=== PATIENT | female | born 1950 | race Caucasian/White ===

== ENCOUNTER 2017-06-26 21:18 | Emergency (ER) | payer MEDICARE, SELFPAY ==
[2017-06-26 21:20] VITALS: BP 152/83; PULSE 90; RESP 16; TEMP 36.6; O2SAT 97; BMI 30.7
--- NOTE | 2017-06-26 22:06 | HMH.EDNVD ---
ED Disposition Clinical Impression: Abdominal pain Qualifiers: Abdominal location: right lower quadrant Qualified Code(s): R10.31 - Right lower quadrant pain Disposition: Home, Self-Care Condition on Discharge: Good Instructions: DI for Acute Abdomen Additional Instructions: resume orders Referrals: Rony Martínez MD [Primary Care Provider] - - Critical Care Critical Care Time: No Attestation: On 06/26/17, the high probability of a clinically significant, sudden or life threatening deterioration of the following system(s) required my full and direct attention, intervention and personal management. The time I documented below is in addition to time spent performing reported procedures but includes the following listed in this critical care notation. Medical Decision Making - Medical Records Medical records reviewed: Yes: I reviewed the patient's medical records. Vital Signs: 06/26/17 21:20 06/26/17 22:48 Temperature 97.8 F Temperature Source Oral Pulse Rate [Right Radial] 90 63 Respiratory Rate 16 18 Blood Pressure [Right Arm] 152/83 149/71 Blood Pressure Mean [Right Arm] 106 97 Blood Pressure Source [Right Arm] Automatic Cuff Automatic Cuff Blood Pressure Position [Right Arm] Sitting Sitting 02 Sat by Pulse Oximetry 97 97 Oxygen Delivery Method Room Air Room Air - Lab Data Lab results reviewed: Yes: I reviewed the patient's lab results. Lab Results 06/26/17 22:25: Urine Color Yellow, Urine Appearance Clear, Urine pH 6.0, Ur Specific [place] 1.010, Urine Protein Negative, Urine Glucose (UA) Negative, Urine Ketones Negative, Urine Blood Trace-i, Urine Nitrate Negative, Urine Bilirubin Negative, Urine Urobilinogen 0.2, Ur Leukocyte Esterase Trace, Urine RBC None, Urine WBC Occasional, Ur Squamous Epith Cells 3-5, Urine Bacteria Trace 06/26/17 22:41: WBC 10.5, RBC 4.92, Hgb 13.3, Hct 41.2, MCV 83.7, MCH 27.1, MCHC 32.4, RDW 14.2, Plt Count 249, MPV 7.7, Neut % (Auto) 76.4, Lymph % (Auto) 16.6, [place] % (Auto) 5.1, Eos % (Auto) 1.2, Baso % (Auto) 0.6, Neut # (Auto) 8.0 H, Lymph # (Auto) 1.7, [place] # (Auto) 0.5, Eos # (Auto) 0.1, Baso # (Auto) 0.1 06/26/17 22:41: Sodium 137, Potassium 4.1, Chloride 102, Carbon Dioxide 27, Anion Gap 12.1, BUN 6 L, Creatinine 0.81, Estimated Creat Clear 79, Estimated GFR 71, Est GFR ( Amer) 86, Glucose 123 H, Calcium 9.5, Total Bilirubin 0.3, AST 23, ALT 46, Alkaline Phosphatase 130 H, Total Protein 7.4, Albumin 3.9, Globulin 3.5 H, Albumin/Globulin Ratio 1.1, Amylase 107 06/26/17 22:41: Lipase 139 Result diagrams: 06/26/17 22:41 06/26/17 22:41 Orders (Tests/Meds): ORDERS Category Date Time Status CT abdomen pelvis wo con Stat Cat Scan 06/26/17 22:08 Taken [place] (Eskalith(R)) Stat Lab 06/26/17 22:41 Received - CT Data CT Scan: Abdomen, Pelvis Time Received: 23:[address] Reviewed: Yes: I have viewed the radiologist's interpretation Preliminary Findings: Normal/NAD - Tirso Inquiry Pt receiving controlled substance: No Nausea/Vomiting/Diarrhea HPI - General Chief complaint: Abdominal Pain Stated complaint: abdominal pain Time Seen by Provider: 06/26/17 21:35 Mode of Arrival: EMS Source of Information: Patient, EMS, Medical Record Limitations: No Limitations Description of Symptoms (Recalled from ER Triage Doc. by RN): pt reports pain in stomach, back, right leg, for months, states she isn't happy living at [facility] - History of Present Illness HPI Narrative: pt with lower abd pain tonight with no fever or vomiting MD complaint: abdominal pain Onset (ago): day(s) Associated Abdominal Pain: Yes Location of pain: RLQ Severity: moderate Relieving factors: none Exacerbating factors: none - Related Data Home Medications Medication Instructions Recorded Confirmed Benztropine Mesylate 0.5 mg PO BID 06/26/17 06/26/17 Brimonidine Tartrate/Timolol 15 ml OP DAILY 06/26/17 06/26/17 [Combigan 0.2%-0.5% Eye Drops] Buspirone HC
--- NOTE | 2017-06-26 22:08 | CT_ITS ---
CT abdomen pelvis wo con CLINICAL INDICATION: Localized lower abdominal pain ITS.REASON: abd pain ORDERING PHYSICIAN: Rony Martínez MD PATIENT AGE: 66 years COMPARISON: None TECHNIQUE: Axial images obtained with sagittal and coronal reformats. PROCEDURE: Oral Contrast: None IV Contrast: None . FINDINGS: There are trace bilateral pleural effusions with mild adjacent atelectasis. There is diffuse fatty liver. Borderline hepatomegaly. No calcified gallstones. Borderline splenomegaly at 14 cm. The adrenal glands are unremarkable. No obvious pancreatic mass. No renal calculi or hydronephrosis. Small umbilical hernia containing fat. No evidence of appendicitis, intestinal obstruction, or diverticulitis. No free air evident. The uterus is enlarged with heterogeneous density with scattered areas of calcification which may represent fibroid involvement. Degenerative change lumbar spine. Mild lumbar scoliosis convex right. IMPRESSION: 1. Trace bilateral pleural effusions. 2. Fatty liver infiltration with borderline hepatosplenomegaly 3. Enlarged uterus with calcification which may be due to fibroids. 4. No acute abdominal or pelvic findings.
--- NOTE | 2017-06-26 22:09 | ED_ITS ---
ED Disposition Clinical Impression: Abdominal pain Qualifiers: Abdominal location: right lower quadrant Qualified Code(s): R10.31 - Right lower quadrant pain Disposition: Home, Self-Care Condition on Discharge: Good Instructions: DI for Acute Abdomen Additional Instructions: resume orders Referrals: Rony Martínez MD [Primary Care Provider] - - Critical Care Critical Care Time: No Attestation: On 06/26/17, the high probability of a clinically significant, sudden or life threatening deterioration of the following system(s) required my full and direct attention, intervention and personal management. The time I documented below is in addition to time spent performing reported procedures but includes the following listed in this critical care notation. Medical Decision Making - Medical Records Medical records reviewed: Yes: I reviewed the patient's medical records. Vital Signs: 06/26/17 21:20 06/26/17 22:48 Temperature 97.8 F Temperature Source Oral Pulse Rate [Right Radial] 90 63 Respiratory Rate 16 18 Blood Pressure [Right Arm] 152/83 149/71 Blood Pressure Mean [Right Arm] 106 97 Blood Pressure Source [Right Arm] Automatic Cuff Automatic Cuff Blood Pressure Position [Right Arm] Sitting Sitting 02 Sat by Pulse Oximetry 97 97 Oxygen Delivery Method Room Air Room Air - Lab Data Lab results reviewed: Yes: I reviewed the patient's lab results. Lab Results 06/26/17 22:25: Urine Color Yellow, Urine Appearance Clear, Urine pH 6.0, Ur Specific [place] 1.010, Urine Protein Negative, Urine Glucose (UA) Negative, Urine Ketones Negative, Urine Blood Trace-i, Urine Nitrate Negative, Urine Bilirubin Negative, Urine Urobilinogen 0.2, Ur Leukocyte Esterase Trace, Urine RBC None, Urine WBC Occasional, Ur Squamous Epith Cells 3-5, Urine Bacteria Trace 06/26/17 22:41: WBC 10.5, RBC 4.92, Hgb 13.3, Hct 41.2, MCV 83.7, MCH 27.1, MCHC 32.4, RDW 14.2, Plt Count 249, MPV 7.7, Neut % (Auto) 76.4, Lymph % (Auto) 16.6, [place] % (Auto) 5.1, Eos % (Auto) 1.2, Baso % (Auto) 0.6, Neut # (Auto) 8.0 H, Lymph # (Auto) 1.7, [place] # (Auto) 0.5, Eos # (Auto) 0.1, Baso # (Auto) 0.1 06/26/17 22:41: Sodium 137, Potassium 4.1, Chloride 102, Carbon Dioxide 27, Anion Gap 12.1, BUN 6 L, Creatinine 0.81, Estimated Creat Clear 79, Estimated GFR 71, Est GFR ( Amer) 86, Glucose 123 H, Calcium 9.5, Total Bilirubin 0.3, AST 23, ALT 46, Alkaline Phosphatase 130 H, Total Protein 7.4, Albumin 3.9 , Globulin 3.5 H, Albumin/Globulin Ratio 1.1, Amylase 107 06/26/17 22:41: Lipase 139 Result diagrams: 06/26/17 22:41 06/26/17 22:41 Orders (Tests/Meds): ORDERS Category Date Time Status CT abdomen pelvis wo con Stat Cat Scan 06/26/17 22:08 Taken [place] (Eskalith(R)) Stat Lab 06/26/17 22:41 Received - CT Data CT Scan: Abdomen, Pelvis Time Received: 23:[address] Reviewed: Yes: I have viewed the radiologist's interpretation Preliminary Findings: Normal/NAD - [place] Inquiry Pt receiving controlled substance: No Nausea/Vomiting/Diarrhea HPI - General Chief complaint: Abdominal Pain Stated complaint: abdominal pain Time Seen by Provider: 06/26/17 21:35 Mode of Arrival: EMS Source of Information: Patient, EMS, Medical Record Limitations: No Limitations Description of Symptoms (Recalled from ER Triage Doc. by RN): pt reports pain in stomach, back, right leg, for months, states she isn't happy living at [facility]
[2017-06-26 22:32] LABS: Microscopic, Urine URINE MICROSCOPIC (MICROSCOPIC)
[2017-06-26 22:38] LABS: Appearance,Urine CLEAR (Clear); Bilirubin,Urine Negative (Negative); Blood, Urine TRACE-I (Negative); Color,Urine YELLOW (Yellow); Glucose,Urine (UA) Negative (Negative); Ketones,Urine Negative (Negative); Leukocyte Esterase,Urine TRACE (Negative); Nitrate,Urine Negative (Negative); Protein,Urine Negative (Negative); Urobilinogen,Urine 0.2 EU/dl (0.2)
[2017-06-26 22:48] VITALS: BP 149/71; PULSE 63; RESP 18; O2SAT 97
[2017-06-26 23:00] LABS: WBC,Urine Occasional #/hpf (0-3)
[2017-06-26 23:01] LABS: Bacteria,Urine Trace /lpf
[2017-06-26 23:01] LABS: Lipase 139 u/L (73-393)
[2017-06-26 23:08] LABS: Alanine Aminotransferase 46 U/L (12-78); Albumin Level 3.9 gm/dL (3.4-5.0); Albumin/Globulin Ratio 1.1 (1.1-1.8); Alkaline Phosphatase 130 U/L (46-116); Amylase 107 U/L (25-125); Anion Gap 12.1 mEq/L (5-15); Aspartate Amino Transferase 23 U/L (15-37); Bilirubin,Total 0.3 mg/dL (0.2-1.0); Blood Urea Nitrogen 6 mg/dL (7-18); Calcium 9.5 mg/dL (8.5-10.1); Carbon Dioxide 27 mmol/L (21.0-32.0); Chloride 102 mmol/L (98-107); Creatinine Clearance Estimated 79 mL/min (0-300); Creatinine,Serum 0.81 mg/dL (0.55-1.02); Estimated Glomerular Filt Rate 71 ml/min (>60); GFR (African American) 86 ML/MIN (>60); Globulin 3.5 gm/dl (1.3-3.2); Glucose 123 mg/dL (74-106); Potassium 4.1 mmoL/L (3.5-5.1); Sodium 137 mmol/L (136-145); Total Protein,Serum 7.4 gm/dL (6.4-8.2)
[2017-06-26 23:14] LABS: Basophils # 0.1 K/mm3 (0-0.2); Basophils % 0.6 % (0.1-2.0); Eosinophils # 0.1 K/mm3 (0.0-0.4); Eosinophils % 1.2 % (0.1-12.0); Hematocrit 41.2 % (37.0-47.0); Hemoglobin 13.3 g/dL (12.2-16.2); Lymphocytes # 1.7 K/mm3 (0.7-4.5); Lymphocytes % 16.6 K/mm3 (10-50); Mean Corpuscular HGB Conc 32.4 g/dL (31.8-35.4); Mean Corpuscular Hemoglobin 27.1 pg (27.0-31.2); Mean Corpuscular Volume 83.7 fl (81-99); Mean Platelet Volume 7.7 fl (7.4-10.4); Monocytes # 0.5 K/mm3 (0.1-1.0); Monocytes % 5.1 % (1.7-9.3); Neutrophils % 76.4 % (37.0-80.0); Platelet Count 249 K/mm3 (142-424); Red Blood Count 4.92 M/mm3 (4.20-5.40); Red Cell Distribution Width 14.2 % (11.5-17.5); White Blood Count 10.5 K/mm3 (4.8-10.8)
[2017-06-26 23:50] VITALS: BP 136/70; PULSE 82; RESP 16; TEMP 36.9; O2SAT 98
== END 2017-06-26 23:50 | disposition home or self-care (01) ==
PROVIDERS: Emergency Provider Emergency Medicine; PCP Emergency Medicine
DX: R10.31 Right lower quadrant pain (principal)
CPT/HCPCS: 74176; 80053; 80178; 81001; 82150; 83690; 85025; 99283

== ENCOUNTER → 2017-10-04 13:20 | Outpatient (POV) | payer MEDICARE, SELFPAY | PROVIDERS: PCP Emergency Medicine; Visit Provider Dermatology | DX: Z00.00 Encounter for general adult medical examination without abnormal findings (principal) ==

== ENCOUNTER → 2017-10-10 09:32 | Outpatient (CLI) | payer MEDICARE, SELFPAY ==
--- NOTE | 2017-10-10 09:33 | MM_ITS ---
MM Dig screening mamm BI w/CAD ORDERING PHYSICIAN : Rony Martínez MD PATIENT AGE: 66 years GENDER: Female INDICATION:. No hormones no new complaints noncontributory family history Previous stereotactic biopsy left breast COMPARISON: No previous mammograms available. Note We faxed request to obtain prior mammograms from 2007 2006 [facility]... But they no longer have images on this patient TECHNIQUE: Standard CC and MLO images were obtained. Axillary cc view both breast included R2 CAD reviewed. FINDINGS: Moderate fatty replacement with mild to moderate residual bladder elements in both breasts. RIGHT BREAST:On today's CC and axillary cc view vague round densities are seen at the deep right breast. Area labeled A deep central right breast measuring 7 mm. Is fairly low-density for size and could be a intramammary node or low density cyst Area labeled B: Low-density Nodule upper-outer quadrant measuring 7.5 mm with similar considerations.. Ultrasound suggested for these areas Series of linear calcification at the superior central breast 12 o'clock position. These may merely be secretory calcifications but would benefit from magnification CC/& 90 spot views when patient returns. These will establish baseline character since prior films not available. LEFT BREAST: no prominent findings. . minimal asymmetric low-density area at inferior left breast MLO view Labeled X. . Likely dissipates on cc view but would suggest a spot MLO & 90 degree & cc view lateral breast when the patient returns. . There is also a vague area at medial left breast was dissipates on subsequent axillary and nipple profile views of left breast \ . There is a metallic marker at the deep central left breast from previous stereotactic biopsy. ....IMPRESSION: ...... 1. No previous studies for comparison .Prior outside studies, no longer available 2. RIGHT BREAST: Two subtle areas low-density nodularity deep right breast-unlikely significant (Labeled A & B) , but would benefit from ultrasound right breast . Developing linear calcifications right breast would benefit from magnification views when patient returns as well. These magnification spot views may be able to included the above-mentioned nodules as well 3. LEFT BREAST Minimal focal low-density area inferior left breast would benefit from MLO & 90 degrees spot view when the patient returns as well. Labeled X BI-RADS Category: 0 Need Additional Imaging Evaluaiton . RECOMMENDED FOLLOW-UP: IMM - FOLLOW-UP RECOMMENDED Right breast. Low Magnification Spot views to include calcifications and nodular densities Also ultrasound right breast Left breast: Small low-density area nodularity at the inferior left breast (A letter has been sent to the patient regarding results of the study.) The
== END ==
PROVIDERS: PCP Emergency Medicine; Visit Provider Emergency Medicine
DX: Z12.31 Encounter for screening mammogram for malignant neoplasm of breast (principal)
CPT/HCPCS: 77067

== ENCOUNTER → 2017-10-31 14:10 | Outpatient (CLI) | payer MEDICARE, SELFPAY ==
--- NOTE | 2017-10-31 14:13 | US_ITS ---
MM Dig mamm DX unilat RT CAD, US breast RT complete Ordering Physician: Rony Martínez MD Patient Age: 66 years: Female HISTORY: ITS.REASON: abnormal right br mammogram Problem solving additional images both breast as well as right breast ultrasound COMPARISON :October 2017 screening mammogram ========= DIAGNOSTIC BILATERAL MAMMOGRAM. W/ SPOT VIEWS:: TECHNIQUE Multiple spot views Regular and Magnification spot views on right right breast Standard Spot views left breast.. FINDINGS Right breast. Areas of vague nodularity in the right breast dissipate from one view to another with no discrete persistent area of concern. Ultrasound reveals no significant cyst or solid nodule. Recommend 6 month follow-up mammogram and ultrasound to evaluate vague scattered areas of nodularity on right *. Small small linear area calcification at the central right breast 12:00 most likely early vascular or secretory calcification but would benefit from follow-up as well Left breast. Additional views decreased concern regarding significant findings at left breast by mammography. Follow-up in one year adequate on left Right breast ultrasound. No cyst. No significant suspicious findings. Only note vague slightly hypoechoic areas of what I suspect are merely areas of vague hypoechoic glandular tissue seen towards upper-outer quadrantRight breast. These would seem to correlate with the minimal nodularity towards upper-outer quadrant seen on mammography... Would suggest 6 month follow-up IMPRESSION: 1. RIGHT BREAST: Recommend follow-up studies within 6 months Additional mammogram views decreased concern regarding a significant nodules. Ultrasound right breast with no definitive findings only some areas of vague slightly hypoechoic tissue upper-outer quadrant..-But Suggest5- 6 month follow-up Small area linear calcifications most likely early benign vascular or secretory calcification, but would benefit from 5- 6 month follow-up as well 2. Left breast : Spot views reveal no areas of concern. Follow-up left mammogram 1 year BI-RADS Category: 3 Benign Finding Short Term Follow-up RECOMMENDED FOLLOW-UP: 6M - 6 MONTH FOLLOW-UP (Right mammogram & ultrasound 5-6 months suggested) (A letter has been sent to the patient regarding results of the study.)
== END ==
PROVIDERS: PCP Emergency Medicine; Visit Provider Emergency Medicine
DX: R92.8 Other abnormal and inconclusive findings on diagnostic imaging of breast (principal)
CPT/HCPCS: 76641; 77065

== ENCOUNTER → 2018-05-01 13:18 | Outpatient (CLI) | payer MEDICARE, SELFPAY ==
--- NOTE | 2018-05-01 13:24 | MM_ITS ---
MM Dig mamm DX unilat RT CAD, US breast RT complete INDICATION: Follow-up abnormal mammogram, probably benign findings ORDERING PHYSICIAN: Lincoln Grimaldo MD PATIENT AGE: 67 years COMPARISON: 10/31/2017 TECHNIQUE: Standard images along spot compression views and right breast ultrasound with axilla FINDINGS: Right breast mammogram: Average fibroglandular tissue. Stable benign-appearing calcifications. Scattered areas of asymmetric density are once again noted and are overall not significantly changed. No malignant appearing mass or malignant appearing microcalcifications evident. Minimal asymmetric density is noted in the medial aspect of the right breast on the cc view. This is not reproducible on the rolled views or the ML view and is felt to be due to fibroglandular elements. Right breast ultrasound: 3 mm parallel hypoechoic area at 8:00. Hypoechoic area at 10:00 does appear to elongate. No malignant appearing mass evident. IMPRESSION: Benign findings, scattered areas of asymmetry felt to represent fibroglandular elements. No change in the benign-appearing calcification. Recommend follow-up screening mammogram in October 2018 and the patient back on schedule BI-RADS Category: 2 Benign Finding(s) RECOMMENDED FOLLOW-UP: 6M - 6 MONTH FOLLOW-UP (A letter has been sent to the patient regarding results of the study.)
== END ==
PROVIDERS: PCP Emergency Medicine; Visit Provider Nurse Practitioner Obstetrics & Gynecology
DX: R92.8 Other abnormal and inconclusive findings on diagnostic imaging of breast (principal)
CPT/HCPCS: 77065

== ENCOUNTER → 2018-05-06 13:48 | Outpatient (CLI) | payer MEDICARE, SELFPAY | LOC: RAD 13:48 | PROVIDERS: PCP Emergency Medicine; Visit Provider Emergency Medicine | DX: R92.8 Other abnormal and inconclusive findings on diagnostic imaging of breast (principal) | CPT/HCPCS: 76641 ==

== ENCOUNTER 2018-12-14 13:30 | Inpatient (IN) ==
[2018-12-14 14:02] LABS: Basophils % 0.3 % (0.1-2.0); Eosinophils # 0.2 K/mm3 (0.0-0.4); Eosinophils % 3.3 % (0.1-12.0); Hematocrit 38.4 % (37.0-47.0); Hemoglobin 11.9 g/dL (12.2-16.2); Lymphocytes # 0.9 K/mm3 (0.7-4.5); Mean Corpuscular Volume 88.5 fl (81-99); Mean Platelet Volume 7.2 fl (7.4-10.4); Monocytes # 0.4 K/mm3 (0.1-1.0); Monocytes % 5.7 % (1.7-9.3); Neutrophils # 4.9 K/mm3 (1.8-7.8); Neutrophils % 76.7 % (37.0-80.0); Platelet Count 331 K/mm3 (142-424); Red Blood Count 4.34 M/mm3 (4.20-5.40); Red Cell Distribution Width 13.8 % (11.5-17.5); White Blood Count 6.4 K/mm3 (4.8-10.8)
--- NOTE | 2018-12-14 14:09 | Emergency Department Note ---
ED Disposition Clinical Impression: [place] toxicity, QT prolongation, Altered mental status, Oral thrush, Hypothyroidism, Dehydration, Medication side effect Disposition: Still a Patient Condition on Discharge: Fair Instructions: DI for Altered Mental Status Referrals: Rony Martínez MD [Primary Care Provider] - - Critical Care Critical Care Time: No Attestation: On 12/14/18, the high probability of a clinically significant, sudden or life threatening deterioration of the following system(s) required my full and direct attention, intervention and personal management. The time I documented below is in addition to time spent performing reported procedures but includes the following listed in this critical care notation. Medical Decision Making - [place] Inquiry Pt receiving controlled substance: No [place] was queried for this patient: No Vital Signs: 12/14/18 13:31 12/14/18 14:03 12/14/18 15:30 Temperature 98 F Temperature Source Oral Pulse Rate [Right Brachial] 73 61 69 Respiratory Rate 16 Blood Pressure [Right Arm] 138/78 111/50 L 140/80 Blood Pressure Mean [Right Arm] 98 70 100 Blood Pressure Source [Right Arm] Automatic Cuff Blood Pressure Position [Right Arm] Sitting 02 Sat by Pulse Oximetry 98 96 95 Oxygen Delivery Method Room Air 12/14/18 16:24 Temperature Temperature Source Pulse Rate [Right Brachial] 55 L Respiratory Rate Blood Pressure [Right Arm] 128/60 Blood Pressure Mean [Right Arm] 82 Blood Pressure Source [Right Arm] Blood Pressure Position [Right Arm] 02 Sat by Pulse Oximetry 97 Oxygen Delivery Method - Lab Data Lab Results 12/14/18 13:45: WBC 6.4, RBC 4.34, Hgb 11.9 L, Hct 38.4, MCV 88.5, MCH 27.4, MCHC 31.0 L, RDW 13.8, Plt Count 331, MPV 7.2 L, Neut % (Auto) 76.7, Lymph % (Auto) 14.0, [place] % (Auto) 5.7, Eos % (Auto) 3.3, Baso % (Auto) 0.3, Neut # (Auto) 4.9, Lymph # (Auto) 0.9, [place] # (Auto) 0.4, Eos # (Auto) 0.2, Baso # (Auto) 0.0 12/14/18 13:45: Sodium 139, Potassium 3.4 L, Chloride 101, Carbon Dioxide 30, Anion Gap 11.4, BUN 8, Creatinine 0.85, Estimated Creat Clear 63, Estimated GFR 67, Est GFR ( Amer) 81, Glucose 96, Calcium 9.5, Total Bilirubin 0.3, AST 22, ALT 29, Alkaline Phosphatase 152 H, Total Protein 6.8, Albumin 3.2 L, Globulin 3.6 H, Albumin/Globulin Ratio 0.9 L 12/14/18 13:47: Magnesium 2.3 H, TSH 14.68 H, Free T4 0.75 L, Salicylates 1.4 L, Acetaminophen 0 L, Total Valproic Acid 92.8, Plasma/Serum Alcohol 0 12/14/18 14:03: Specimen Source Right brachial, O2 % room air, ABG pH 7.45, ABG pCO2 40.2, ABG pO2 74.8 L, ABG HCO3 27.4 H, ABG Total CO2 28.7 H, ABG O2 Saturation 94, ABG Base Excess 3.5 H, Jose Test Non applicable 12/14/18 15:10: Lactate 0.8 12/14/18 15:15: Urine Color Yellow, Urine Appearance Clear, Urine pH 7.0, Ur Specific [place] 1.015, Urine Protein Negative, Urine Glucose (UA) Negative, Urine Ketones Negative, Urine Blood Negative, Urine Nitrate Negative, Urine Bilirubin 1+ A, Urine Urobilinogen 1.0, Ur Leukocyte Esterase Negative, Urine WBC Occasional, Ur Squamous Epith Cells 3-5, Urine Bacteria Trace 12/14/18 15:15: Urine Opiates Screen Negative, Urine Methadone Screen Negative, Ur Barbituates Screen Negative, Ur Phencyclidine Scrn Negative, Ur Amphetamines Screen Negative, U Benzodiazepines Scrn Negative, Urine Cocaine Screen Negative, U Marijuana (THC) Screen Negative Result diagrams: 12/14/18 13:45 12/14/18 13:45 Orders (Tests/Meds): ED MEDICATIONS Discontinued Medications Generic Name Dose Route Start Last Admin Trade Name Freq PRN Reason Stop Dose Admin Sodium Chloride 500 mls @ 999 mls/hr 12/14/18 14:45 12/14/18 14:48 Sod Chlor 0.9% 1000ml Bag IV 12/14/18 15:15 999 mls/hr .Q31M GUNNAR Administration ORDERS Category Date Time Status [place] (Eskalith(R)) Stat Lab 12/14/18 15:10 Received - Radiology Data #1 Image(s): Chest Image Reviewed: Yes I reviewed the patient's radiology image Preliminary Findings: Normal/NAD IMPRESSION: Stable chest. Nothing definitely acute. No significant change since 12/02/2018 - CT Data CT Scan: Head Time Received: 15:[address] Reviewed: Yes: I have viewed the radiologist's interpretation Preliminary Findings: Normal/NAD Findings Narrative: IMPRESSION: No acute intracranial findings No significant change since December 02, 2018 CT head - ECG Data Tracing #1 Normal sinus rhythm 60/min, QTC prolongation at 564msec nonspecific ST and T wave changes in the lateral leads. ECG initial impression date: 12/14/18 ECG initial impression time: 14:00 Medical Decision Narrative: I spoke with the caregiver who told me that the patient has been progressively getting worse over the last months but this morning she was unable to wake up eat her breakfast or take her medications. 1600 patient had no acute finding and CT scan her EKG revealed prolonged QT C and her Depakote level was 94. 1630 I called and discussed with Dr. Medina was covering Dr. Martínez and he agreed to admit the patient for IV fluid rehydration he telemetry monitoring and repeat EKG in the morning, hold her lithium and Depakote. Altered Mental Status HPI - General Chief Complaint: Altered Mental Status Stated Complaint: ams Time Seen by Provider: 12/14/18 13:50 Mode of Arrival: EMS Source of Information: Patient, EMS, Medical Record - History of Present Illness HPI narrative: 67 years old white female who work who lives in an independent living [facility] on multiple psychiatric medications including Depakote risperidone and lithium. 2 days ago the shelter was notified of the lithium toxicity and a dose reduced to twice a day instead of 3 times a day. The patient continues to be somnolent and was brought to the ED for evaluation. The patient has no complain arousable to stimulation alert disoriented to place person and date. She moves 4 extremities. 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 and other antipsychotics.) - Related Data Home Medications Medication Instructions Recorded Confirmed Benztropine Mesylate 0.5 mg PO BID 06/26/17 12/14/18 Brimonidine Tartrate/Timolol 15 ml OP DAILY 06/26/17 12/14/18 [[place] 0.2%-0.5% Eye Drops] [place] Carbonate [[place] 300 mg PO BID 06/26/17 12/14/18 Carbonate ER] Loratadine [Allergy] 10 mg PO DAILY 06/26/17 12/14/18 Multivitamin [One Daily] 1 each PO DAILY 06/26/17 12/14/18 Sertraline HCl [Zoloft] 150 mg PO DAILY 06/26/17 12/14/18 risperiDONE [Risperidone] 4 mg PO BID 06/26/17 12/14/18 buspirone 15 mg tablet 20 mg PO TID tab 11/01/18 12/14/18 diphenhydramine 25 mg capsule 25 mg PO DAILY PRN cap 11/01/18 12/14/18 divalproex 125 mg capsule,delayed 500 mg PO TID cap 11/01/18 12/14/18 release sprinkle levothyroxine 100 mcg tablet 100 mcg PO DAILY 11/01/18 12/14/18 loperamide 2 mg capsule 2 mg PO Q4H 11/01/18 12/14/18 meloxicam 7.5 mg tablet 7.5 mg PO DAILY 11/01/18 12/14/18 polyethylene glycol 3350 17 17 g PO DAILY 11/01/18 12/14/18 gram/dose oral powder Allergies Allergy/AdvReac Type Severity Reaction Status Date / Time fluphenazine [From Prolixin] Allergy Verified 03/27/18 15:51 lorazepam [From Ativan] Allergy Verified 03/27/18 15:51 Penicillins Allergy Verified 03/27/18 15:51 trifluoperazine Allergy Verified 03/27/18 15:51 [From Stelazine] [facility] History - Hepatitis A Screen Attestation statement:: This patient has been screened for Hepatitis A risk factors. 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 ) - ENT ENT exam: Present: normal exam, normal oropharynx, TM's normal bilaterally, normal external ear exam, other (Tongue is dry coated with oral thrush. ) - Neck Neck exam: Present: normal inspection, full ROM, trachea midline. Absent: tenderness, meningismus, lymphadenopathy - Chest Chest inspection: Present: normal inspection, symmetric chest wall rise. Absent: tenderness - Respiratory Respiratory exam: Present: normal lung sounds bilaterally. Absent: respiratory distress - Cardiovascular Cardiovascular exam: Present: regular rate, normal rhythm. Absent: JVD - Abdominal Exam Abdominal exam: Present: soft, normal bowel sounds. Absent: distention, tendern ess, guarding, rebound, rigidity - External exam: Present: normal external exam - Extremities Exam Extremities exam: Present: normal inspection, full ROM, normal capillary refill. Absent: calf tenderness - Back Exam Back exam: Present: normal inspection. Absent: tenderness, CVA tenderness (R), CVA tenderness (L) - Neurological Exam Neurological exam: Present: alert, motor sensory deficit, reflexes normal, other (No cranial nerve deficit except for left eye blindness. The gait was not tested.) - Psychiatric Psychiatric exam: Present: normal affect, normal mood - Skin Skin exam: Present: warm, dry, intact, normal color - Lymphatic Lymphatic Findings: no adenopathy
[2018-12-14 14:17] LABS: Albumin Level 3.2 gm/dL (3.4-5.0); Albumin/Globulin Ratio 0.9 (1.1-1.8); Anion Gap 11.4 mEq/L (5-15); Bilirubin,Total 0.3 mg/dL (0.2-1.0); Calcium 9.5 mg/dL (8.5-10.1); Globulin 3.6 gm/dl (1.3-3.2); Total Protein,Serum 6.8 gm/dL (6.4-8.2)
[2018-12-14 14:41] LABS: Free T4 (Free Thyroxine) 0.75 ng/dl (0.76-1.46); Salicylate 1.4 mg/dL (2.8-20.0); Thyroid Stimulating Hormone 14.68 uIU/ml (0.358-3.740)
[2018-12-14 15:11] LABS: ABG Base Excess 3.5 mmol/L (-2.4-2.3); ABG HCO3 27.4 mmhg (22.0-26.0); ABG Oxygen Saturation 94 % (90-100); ABG PCO2 40.2 mmhg (35.0-45.0); ABG PH 7.45 mmol/L (7.35-7.45); ABG PO2 74.8 mmhg (80-100); ABG TCO2 28.7 mmhg (23-27)
[2018-12-14 15:12] LABS: Allen's Test Non Applicable; Oxygen room air %
[2018-12-14 15:24] LABS: Microscopic, Urine URINE MICROSCOPIC (MICROSCOPIC)
[2018-12-14 15:40] LABS: Appearance,Urine CLEAR (Clear); Blood, Urine Negative (Negative); Color,Urine YELLOW (Yellow); Glucose,Urine (UA) Negative (Negative); Ketones,Urine Negative (Negative); Leukocyte Esterase,Urine Negative (Negative); Protein,Urine Negative (Negative); Specific Gravity, Urine 1.015 (1.005-1.030)
[2018-12-14 15:54] LABS: Amphetamine/Metha Screen,Urine Negative ng/mL (<1000); Barbiturates Screen,Urine Negative ng/mL (<200); Benzodiazepines Screen,Urine Negative ng/mL (<200); Cannabinoid Screen,Urine Negative ng/mL (<50); Cocaine Screen,Urine Negative ng/mL (<300); Methadone Screen,Urine Negative ng/mL (<300); Opiate Screen,Urine Negative ng/mL (<300); Phencyclidine Screen,Urine Negative ng/mL (<25)
[2018-12-14 15:59] LABS: Bilirubin,Urine 1+ (Negative)
[2018-12-14 16:01] LABS: Bacteria,Urine Trace /lpf; WBC,Urine Occasional #/hpf (0-3)
--- NOTE | 2018-12-14 20:00 | History & Physical Report ---
*Admission Date: 12/14/18 *Chief complaint: Altered mental status *History of present illness: 67-year-old with significant psychiatric disease who has been a long-term resident of a local [facility] and who is on multiple cardiac medications and psychiatric medications including lithium. History from [facility] notes that 3 days ago they received notification that her lithium level was "toxic." The order was given to reduce lithium dose from 3 times daily to twice daily, but patient has continued to become more somnolent and this morning was noted to be sleeping in her chair, unable to feed or do activities of daily living and was brought to the emergency department. Noted to be somnolent, but arousable, vital signs and labs were unremarkable- lithium level is pending-but was noted to have long QT interval on EKG and was admitted to the hospital for further evaluation and monitoring. [facility] History I have reviewed the patient's past medical history: Yes Medical History: Denies:: Cancer, Diabetes Mellitus Type 1, Diabetes Mellitus Type 2, MRSA *Have you ever received a pneumonia vaccine?: Yes *Have you received a flu vaccine this season?: Yes Other Medical History: Reports: Cataracts, Glaucoma, Hypothyroidism, Thyroid Disease Comment:: Schizophrenia with schizoaffective disorder Amputation: No Fractures: No - *Social History Smoking Status: Former smoker Alcohol Intake: never *Occupational Status:: disabled Housing: other *Travel in the last 8 weeks: None Family Hx:: Unable to obtain Review of Systems - Review of Systems Review of systems:: unable to obtain Meds Home Medications Medication Instructions Recorded Confirmed Type Benztropine Mesylate 1 mg PO BID 06/26/17 12/14/18 History Brimonidine Tartrate/Timolol 15 ml OD DAILY 06/26/17 12/14/18 History [[place] 0.2%-0.5% Eye Drops] [place] Carbonate [[place] 300 mg PO BID 06/26/17 12/14/18 History Carbonate ER] Loratadine [Allergy] 10 mg PO DAILY 06/26/17 12/14/18 History Multivitamin [One Daily] 1 each PO DAILY 06/26/17 12/14/18 History Sertraline HCl [Zoloft] 200 mg PO DAILY 06/26/17 12/14/18 History risperiDONE [Risperidone] 4 mg PO BID 06/26/17 12/14/18 History buspirone 15 mg tablet 20 mg PO TID tab 11/01/18 12/14/18 History divalproex 125 mg capsule,delayed 500 mg PO TID cap 11/01/18 12/14/18 History release sprinkle levothyroxine 100 mcg tablet 100 mcg PO DAILY 11/01/18 12/14/18 History loperamide 2 mg capsule 2 mg PO Q3HP PRN 11/01/18 12/14/18 History meloxicam 7.5 mg tablet 7.5 mg PO DAILY 11/01/18 12/14/18 History polyethylene glycol 3350 17 17 g PO DAILYP PRN 11/01/18 12/14/18 History gram/dose oral powder Acetaminophen [Acetaminophen 325mg 650 mg PO Q4HP PRN 12/14/18 12/14/18 History tab] OXcarbazepine [Trileptal 300mg 300 mg PO BID 12/14/18 12/14/18 History tablet] Ondansetron HCl [Ondansetron 4mg 4 mg PO Q4HP PRN 12/14/18 12/14/18 History Tablet] Allergies Allergy/AdvReac Type Severity Reaction Status Date / Time fluphenazine [From Prolixin] Allergy Verified 12/14/18 19:03 lorazepam [From Ativan] Allergy Verified 12/14/18 19:03 Penicillins Allergy Verified 12/14/18 19:03 trifluoperazine Allergy Verified 12/14/18 19:03 [From Stelazine] Exam Vital signs and Labs for Last 24 Hours: Temp Pulse Resp BP Pulse Ox 97.7 F 58 L 16 129/62 96 12/14/18 19:51 12/14/18 19:51 12/14/18 19:51 12/14/18 19:51 12/14/18 19:51 Laboratory Results - last 24 hr 12/14/18 13:45: WBC 6.4, RBC 4.34, Hgb 11.9 L, Hct 38.4, MCV 88.5, MCH 27.4, MCHC 31.0 L, RDW 13.8, Plt Count 331, MPV 7.2 L, Neut % (Auto) 76.7, Lymph % (Auto) 14.0, [place] % (Auto) 5.7, Eos % (Auto) 3.3, Baso % (Auto) 0.3, Neut # (Auto) 4.9, Lymph # (Auto) 0.9, [place] # (Auto) 0.4, Eos # (Auto) 0.2, Baso # (Auto) 0.0 12/14/18 13:45: Sodium 139, Potassium 3.4 L, Chloride 101, Carbon Dioxide 30, Anion Gap 11.4, BUN 8, Creatinine 0.85, Estimated Creat Clear 63, Estimated GFR 67, Est GFR ( Amer) 81, Glucose 96, Calcium 9.5, Total Bilirubin 0.3, AST 22, ALT 29, Alkaline Phosphatase 152 H, Total Protein 6.8, Albumin 3.2 L, Globulin 3.6 H, Albumin/Globulin Ratio 0.9 L 12/14/18 13:47: Magnesium 2.3 H, TSH 14.68 H, Free T4 0.75 L, Salicylates 1.4 L, Acetaminophen 0 L, Total Valproic Acid 92.8, Plasma/Serum Alcohol 0 12/14/18 14:03: Specimen Source Right brachial, O2 % room air, ABG pH 7.45, ABG pCO2 40.2, ABG pO2 74.8 L, ABG HCO3 27.4 H, ABG Total CO2 28.7 H, ABG O2 Satura tion 94, ABG Base Excess 3.5 H, Jose Test Non applicable 12/14/18 15:10: Lactate 0.8 12/14/18 15:15: Urine Color Yellow, Urine Appearance Clear, Urine pH 7.0, Ur Specific [place] 1.015, Urine Protein Negative, Urine Glucose (UA) Negative, Urine Ketones Negative, Urine Blood Negative, Urine Nitrate Negative, Urine Bilirubin 1+ A, Urine Urobilinogen 1.0, Ur Leukocyte Esterase Negative, Urine WBC Occasional, Ur Squamous Epith Cells 3-5, Urine Bacteria Trace 12/14/18 15:15: Urine Opiates Screen Negative, Urine Methadone Screen Negative, Ur Barbituates Screen Negative, Ur Phencyclidine Scrn Negative, Ur Amphetamines Screen Negative, U Benzodiazepines Scrn Negative, Urine Cocaine Screen Negative, U Marijuana (THC) Screen Negative I & O for Last 24 hours: Intake & Output 12/12/18 12/13/18 12/14/18 12/15/18 11:59 11:59 11:59 11:59 Weight 173 lb 6.4 oz Narrative: Patient is somnolent, will arouse to her name and to light sternal rub and other tactile stimuli. Will respond to some commands such as opening her mouth briefly, but otherwise falls right back to sleep. Heart rate regular. Lungs clear. Abdomen soft, distal perfusion is good. Appears older than her stated age. No evidence of skin trauma or bruising. ENT exam shows thick coating on tongue but no buccal thrush. Cranial nerves symmetric by observation. Assessment and Plan (1) Altered mental status Current visit: Yes Status: Acute Category: Medical Code(s): R41.82 - Altered mental status, unspecified Probably from drug effect. Concern about QT prolongation. Admit to hospital. Telemetry monitoring. Monitor drug levels. Hold lithium and Depakote given the relatively high levels of this medication. Cautious IV fluids. Probably will need transfer to long-term care rather than personal [facility]. (2) [place] toxicity Current visit: Yes Status: Acute Category: Medical Code(s): T56.891A - Toxic effect of other metals, accidental (unintentional), initial encounter (3) Medication side effect Current visit: Yes Status: Acute Category: Medical Code(s): T88.7XXA - Unspecified adverse effect of drug or medicament, initial encounter (4) QT prolongation Current visit: Yes Status: Acute Category: Medical Code(s): R94.31 - Abnormal electrocardiogram [ECG] [EKG]
[2018-12-15 06:23] LABS: Basophils % 0.3 % (0.1-2.0); Eosinophils # 0.1 K/mm3 (0.0-0.4); Eosinophils % 1.5 % (0.1-12.0); Lymphocytes # 1.3 K/mm3 (0.7-4.5); Lymphocytes % 16.2 % (10-50); Mean Corpuscular HGB Conc 30.5 g/dL (31.8-35.4); Mean Platelet Volume 7.7 fl (7.4-10.4); Monocytes # 0.8 K/mm3 (0.1-1.0); Monocytes % 9.3 % (1.7-9.3); Neutrophils % 72.7 % (37.0-80.0); Platelet Count 282 K/mm3 (142-424); Red Blood Count 3.27 M/mm3 (4.20-5.40); White Blood Count 8.2 K/mm3 (4.8-10.8)
[2018-12-15 06:26] LABS: Hematocrit 29.1 % (37.0-47.0); Hemoglobin 8.9 g/dL (12.2-16.2)
[2018-12-15 06:36] LABS: Anion Gap 8.3 mEq/L (5-15); Calcium 8.7 mg/dL (8.5-10.1)
--- NOTE | 2018-12-15 08:44 | Progress Note ---
Internal Medicine - PN: Subj *Date: 12/15/18 *Time: 08:42 Interval history: Patient is more alert this morning. Able to converse and answer some questions. Nurses reports she still continues to need significant help with feeding and is a 2 person assist with getting up to the bathroom. Exam Vital signs and Labs for Last 24 Hours: Temp Pulse Resp BP Pulse Ox 98.0 F 65 17 135/67 97 12/15/18 08:00 12/15/18 08:00 12/15/18 08:00 12/15/18 08:00 12/15/18 08:00 Laboratory Results - last 24 hr 12/14/18 13:45: WBC 6.4, RBC 4.34, Hgb 11.9 L, Hct 38.4, MCV 88.5, MCH 27.4, MCHC 31.0 L, RDW 13.8, Plt Count 331, MPV 7.2 L, Neut % (Auto) 76.7, Lymph % (Auto) 14.0, [place] % (Auto) 5.7, Eos % (Auto) 3.3, Baso % (Auto) 0.3, Neut # ( Auto) 4.9, Lymph # (Auto) 0.9, [place] # (Auto) 0.4, Eos # (Auto) 0.2, Baso # (Auto) 0.0 12/14/18 13:45: Sodium 139, Potassium 3.4 L, Chloride 101, Carbon Dioxide 30, Anion Gap 11.4, BUN 8, Creatinine 0.85, Estimated Creat Clear 63, Estimated GFR 67, Est GFR ( Amer) 81, Glucose 96, Calcium 9.5, Total Bilirubin 0.3, AST 22, ALT 29, Alkaline Phosphatase 152 H, Total Protein 6.8, Albumin 3.2 L, Globulin 3.6 H, Albumin/Globulin Ratio 0.9 L 12/14/18 13:47: Magnesium 2.3 H, TSH 14.68 H, Free T4 0.75 L, Salicylates 1.4 L, Acetaminophen 0 L, Total Valproic Acid 92.8, Plasma/Serum Alcohol 0 12/14/18 14:03: Specimen Source Right brachial, O2 % room air, ABG pH 7.45, ABG pCO2 40.2, ABG pO2 74.8 L, ABG HCO3 27.4 H, ABG Total CO2 28.7 H, ABG O2 Saturation 94, ABG Base Excess 3.5 H, Jose Test Non applicable 12/14/18 15:10: Lactate 0.8 12/14/18 15:15: Urine Color Yellow, Urine Appearance Clear, Urine pH 7.0, Ur Specific [place] 1.015, Urine Protein Negative, Urine Glucose (UA) Negative, Urine Ketones Negative, Urine Blood Negative, Urine Nitrate Negative, Urine Bilirubin 1+ A, Urine Urobilinogen 1.0, Ur Leukocyte Esterase Negative, Urine WBC Occasional, Ur Squamous Epith Cells 3-5, Urine Bacteria Trace 12/14/18 15:15: Urine Opiates Screen Negative, Urine Methadone Screen Negative, Ur Barbituates Screen Negative, Ur Phencyclidine Scrn Negative, Ur Amphetamines Screen Negative, U Benzodiazepines Scrn Negative, Urine Cocaine Screen Negative, U Marijuana (THC) Screen Negative 12/15/18 05:45: WBC 8.2 D, RBC 3.27 L, Hgb 8.9 L D, Hct 29.1 L, MCV 89.0, MCH 27.2, MCHC 30.5 L, RDW 14.0, Plt Count 282, MPV 7.7, Neut % (Auto) 72.7, Lymph % (Auto) 16.2, [place] % (Auto) 9.3, Eos % (Auto) 1.5, Baso % (Auto) 0.3, Neut # (Auto) 6.0, Lymph # (Auto) 1.3, [place] # (Auto) 0.8, Eos # (Auto) 0.1, Baso # ( Auto) 0.0 12/15/18 05:45: Sodium 139, Potassium 3.3 L, Chloride 106, Carbon Dioxide 28, Anion Gap 8.3, BUN 6 L, Creatinine 0.74, Estimated Creat Clear 69, Estimated GFR 79, Est GFR ( Amer) 95, Glucose 112 H, Calcium 8.7 I & O for Last 24 hours: Intake & Output 12/12/18 12/13/18 12/14/18 12/15/18 11:59 11:59 11:59 11:59 Intake Total 1554 / 1554 Output Total 1652 / 1652 Balance -98 / -98 Weight 173 lb 2 oz Narrative: Patient is awake, more talkative than yesterday, able to give some very vague historical details about her presentation. Continues to say that she feels very tired. Sclerotic changes to the left sclera with evidence of complete visual loss in the left eye. This is an old finding. Heart rate regular. Abdomen soft, oropharynx more moist with less exudate tod ay. Able to move extremities but is globally extremely weak. Assessment and Plan (1) Altered mental status Current visit: Yes Status: Acute Category: Medical Code(s): R41.82 - Altered mental status, unspecified Overall slightly improving. Patient continues to be very weak. I do not believe patient will be able to return to a personal senior living environment. Care management evaluation for long-term care placement (2) [place] toxicity Current visit: Yes Status: Acute Category: Medical Code(s): T56.891A - Toxic effect of other metals, accidental (unintentional), initial encounter [place] is being held. [place] levels pending. (3) Medication side effect Current visit: Yes Status: Acute Category: Medical Code(s): T88.7XXA - Unspecified adverse effect of drug or medicament, initial encounter (4) QT prolongation Current visit: Yes Status: Acute Category: Medical Code(s): R94.31 - Abnor mal electrocardiogram [ECG] [EKG] QTc interval has improved on EKG today, continue monitoring on telemetry. (5) Visual loss, left eye Current visit: Yes Status: Acute Category: Medical Code(s): H54.62 - Unqualified visual loss, left eye, normal vision right eye Patient states this is from trauma many years ago
--- NOTE | 2018-12-15 10:11 | Pharmacy Consult Notes ---
[facility] Pharmacy VTE Monitoring - Patient Demographics Admission date: 12/15/18 Report Date: 12/15/18 Time: 10:09 Allergies/Adverse Reactions: Patient Allergies fluphenazine [From Prolixin] Allergy (Verified 12/14/18 19:03) lorazepam [From Ativan] Allergy (Verified 12/14/18 19:03) Penicillins Allergy (Verified 12/14/18 19:03) trifluoperazine [From Stelazine] Allergy (Verified 12/14/18 19:03) Height: 1.63 m Weight: 78.528 kg Patient Problems: Current Active Problems (Updated 12/15/18 @ 08:44 by Dinh Olsen MD) Altered mental status (Acute) [place] toxicity (Acute) QT prolongation (Acute) Oral thrush (Acute) Hypothyroidism (Acute) Dehydration (Acute) Medication side effect (Acute) Visual loss, left eye (Acute) - VTE Risk Labs: VTE Related Lab Results Hgb 8.9 g/dL (12.2-16.2) L D 12/15/18 05:45 Hct 29.1 % (37.0-47.0) L 12/15/18 05:45 Plt Count 282 K/mm3 (142-424) 12/15/18 05:45 BUN 6 mg/dL (7-18) L 12/15/18 05:45 Creatinine 0.74 mg/dL (0.55-1.02) 12/15/18 05:45 Estimated Creat Clear 69 mL/min (50-200) 12/15/18 05:45 Was VTE Risk Assessment Performed: Yes VTE Score: 3 VTE Risk Level: Low Risk - Prophylaxis Types of VTE Prophylaxis: TEDS Knee High (JASBIR HOSE ORDERED)
[2018-12-16 06:07] LABS: Basophils % 0.5 % (0.1-2.0); Eosinophils # 0.1 K/mm3 (0.0-0.4); Eosinophils % 1.9 % (0.1-12.0); Hematocrit 29.8 % (37.0-47.0); Hemoglobin 9.2 g/dL (12.2-16.2); Lymphocytes # 1.4 K/mm3 (0.7-4.5); Lymphocytes % 19.1 % (10-50); Mean Corpuscular HGB Conc 30.9 g/dL (31.8-35.4); Mean Corpuscular Volume 89.2 fl (81-99); Mean Platelet Volume 7.8 fl (7.4-10.4); Monocytes # 0.7 K/mm3 (0.1-1.0); Monocytes % 9.4 % (1.7-9.3); Neutrophils # 5.1 K/mm3 (1.8-7.8); Neutrophils % 69.2 % (37.0-80.0); Platelet Count 284 K/mm3 (142-424); Red Blood Count 3.34 M/mm3 (4.20-5.40); Red Cell Distribution Width 14.1 % (11.5-17.5); White Blood Count 7.4 K/mm3 (4.8-10.8)
[2018-12-16 06:26] LABS: Albumin Level 2.2 gm/dL (3.4-5.0); Albumin/Globulin Ratio 0.9 (1.1-1.8); Bilirubin,Total 0.2 mg/dL (0.2-1.0); Calcium 8.3 mg/dL (8.5-10.1); Globulin 2.5 gm/dl (1.3-3.2); Total Protein,Serum 4.7 gm/dL (6.4-8.2)
--- NOTE | 2018-12-16 07:48 | Progress Note ---
Internal Medicine - PN: Subj *Date: 12/16/18 *Time: 07:46 Interval history: Overall patient remains even more alert than yesterday. Nursing staff report that she is very nervous about getting up and standing on her own and feels very dizzy. Has also had some increasing yelling behaviors but has not been physically aggressive and is very cooperative and talkative on exam. Exam Vital signs and Labs for Last 24 Hours: Temp Pulse Resp BP Pulse Ox 98.0 F 67 18 148/64 H 98 12/16/18 04:00 12/16/18 04:00 12/16/18 04:00 12/16/18 04:00 12/16/18 04:00 Laboratory Results - last 24 hr 12/15/18 09:40: Stl Aeromonas (PCR) Not detected, Stl C. cayetanensis PCR Not detected, Stool Rotavirus (PCR) Not detected, Stl Adenov F 40/41 PCR Not detected, Stool Astrovirus (PCR) Not detected, Stool Campylobacter PCR Not detected, Stl C.difficile Tox PCR Not detected, Stool Cryptosporidium PCR Not detected, Stl E.coli Shiga Tox PCR Not detected, Stool E coli O157 PCR Not detected, Stl Enterotoxigenic E PCR Not detected, Stool EPEC (PCR) Not detected, Stool EAEC (PCR) Not detected, Stl E. histolytica PCR Not detected, Stool Giardia Lamblia PCR Not detected, Stool Salmonella PCR Not detected, Stool Sapovirus (PCR) Not detected, Stl P. shigelloides PCR Not detected, Stl Shigella/EIEC PCR Not detected, St Y.enterocolitica PCR Not detected, Stool Vibrio (PCR) Not detected, Stl Vibrio cholerae PCR Not detected, Stl Norovirus GI/GII PCR Not detected 12/16/18 05:28: WBC 7.4, RBC 3.34 L, Hgb 9.2 L, Hct 29.8 L, MCV 89.2, MCH 27.6, MCHC 30.9 L, RDW 14.1, Plt Count 284, MPV 7.8, Neut % (Auto) 69.2, Lymph % (Auto) 19.1, [place] % (Auto) 9.4 H, Eos % (Auto) 1.9, Baso % (Auto) 0.5, Neut # (Auto) 5.1, Lymph # (Auto) 1.4, [place] # (Auto) 0.7, Eos # (Auto) 0.1, Baso # (Auto) 0.0 12/16/18 05:28: Sodium 140, Potassium 3.0 L, Chloride 109 H, Carbon Dioxide 26, Anion Gap 8.0, BUN 3 L D, Creatinine 0.68, Estimated Creat Clear 70, Estimated GFR 87, Est GFR ( Amer) 105, Glucose 96, Calcium 8.3 L, Total Bilirubin 0.2, AST 14 L D, ALT 19 D, Alkaline Phosphatase 114, Total Protein 4.7 L D, Albumin 2.2 L, Globulin 2.5, Albumin/Globulin Ratio 0.9 L I & O for Last 24 hours: Intake & Output 12/13/18 12/14/18 12/15/18 12/16/18 11:59 11:59 11:59 11:59 Intake Total 1914 / 1914 3709 / 3709 Output Total 1802 / 1802 1300 / 1300 Balance 112 / 112 2409 / 2409 Weight 173 lb 2 oz 175 lb 7 oz Narrative: Globally weak, heart rate regular. Abdomen soft, anterior lung ely clear, no clubbing or edema in her extremities. Sclerotic changes to left eye as previously noted Assessment and Plan (1) Altered mental status Current visit: Yes Status: Acute Category: Medical Code(s): R41.82 - Altered mental status, unspecified (2) [place] toxicity Current visit: Yes Status: Acute Category: Medical Code(s): T56.891A - Toxic effect of other metals, accidental (unintentional), initial encounter (3) Medication side effect Current visit: Yes Status: Acute Category: Medical Code(s): T88.7XXA - Unspecified adverse effect of drug or medicament, initial encounter (4) QT prolongation Current visit: Yes Status: Acute Category: Medical Code(s): R94.31 - Abnormal electrocardiogram [ECG] [EKG] (5) Visual loss, left eye Current visit: Yes Status: Acute Category: Medical Code(s): H54.62 - Unqualified visual loss, left eye, normal vision right eye - Assessment and plan all Dx Assessment and Plan for all problems:: QT prolongation has resolved with medication changes. Continue current therapy but I will add Abilify because of her need for psychiatric medication-she is probably not a candidate to restart lithium. Continue nursing care. Patient needs PT/OT evaluation but at this point is a total lift patient and needs to be referred to a senior care facility for ongoing care. She is not a candidate to return to a personal senior living at this point.
[2018-12-17 06:15] LABS: Basophils % 0.4 % (0.1-2.0); Eosinophils # 0.1 K/mm3 (0.0-0.4); Eosinophils % 1.5 % (0.1-12.0); Hematocrit 31.8 % (37.0-47.0); Hemoglobin 9.5 g/dL (12.2-16.2); Lymphocytes # 1.4 K/mm3 (0.7-4.5); Lymphocytes % 18.6 % (10-50); Mean Corpuscular HGB Conc 29.9 g/dL (31.8-35.4); Mean Corpuscular Volume 89.5 fl (81-99); Mean Platelet Volume 7.7 fl (7.4-10.4); Monocytes # 0.6 K/mm3 (0.1-1.0); Monocytes % 7.9 % (1.7-9.3); Neutrophils # 5.5 K/mm3 (1.8-7.8); Neutrophils % 71.7 % (37.0-80.0); Platelet Count 282 K/mm3 (142-424); Red Blood Count 3.55 M/mm3 (4.20-5.40); Red Cell Distribution Width 14.3 % (11.5-17.5); White Blood Count 7.6 K/mm3 (4.8-10.8)
[2018-12-17 06:26] LABS: Albumin Level 2.2 gm/dL (3.4-5.0); Albumin/Globulin Ratio 0.8 (1.1-1.8); Anion Gap 12.3 mEq/L (5-15); Bilirubin,Total 0.1 mg/dL (0.2-1.0); Calcium 8.3 mg/dL (8.5-10.1); Globulin 2.7 gm/dl (1.3-3.2); Total Protein,Serum 4.9 gm/dL (6.4-8.2)
--- NOTE | 2018-12-17 09:01 | Progress Note ---
<Sedrick Sullivan - Last Filed: 12/17/18 09:20> Internal Medicine - PN: Subj *Date: 12/17/18 *Time: 09:20 Interval history: 67-year-old female patient sitting up in bed this morning. She is awake, alert, and following commands appropriately. She is a lot more alert today than she was in previous days, still having difficulty getting up and standing on her own. Denies any pain or needs at this time. Appears to be doing better after stopping Risperdal and adding Abilify. Exam Vital signs and Labs for Last 24 Hours: Temp Pulse Resp BP Pulse Ox 98.2 F 69 18 122/45 L 99 12/17/18 07:31 12/17/18 07:31 12/17/18 07:31 12/17/18 07:31 12/17/18 07:31 Laboratory Results - last 24 hr 12/14/18 15:10: [place] 1.9 H* 12/17/18 05:58: WBC 7.6, RBC 3.55 L, Hgb 9.5 L, Hct 31.8 L, MCV 89.5, MCH 26.8 L , MCHC 29.9 L, RDW 14.3, Plt Count 282, MPV 7.7, Neut % (Auto) 71.7, Lymph % (Auto) 18.6, [place] % (Auto) 7.9, Eos % (Auto) 1.5, Baso % (Auto) 0.4, Neut # (Auto) 5.5, Lymph # (Auto) 1.4, [place] # (Auto) 0.6, Eos # (Auto) 0.1, Baso # (Auto) 0.0 12/17/18 05:58: Sodium 144, Potassium 3.3 L, Chloride 109 H, Carbon Dioxide 26, Anion Gap 12.3, BUN 2 L D, Creatinine 0.77, Estimated Creat Clear 73, Estimated GFR 75, Est GFR ( Amer) 91, Glucose 111 H, Calcium 8.3 L, Total Bilirubin 0.1 L, AST 14 L, ALT 19, Alkaline Phosphatase 113, Total Protein 4.9 L, Albumin 2.2 L, Globulin 2.7, Albumin/Globulin Ratio 0.8 L I & O for Last 24 hours: Intake & Output 12/14/18 12/15/18 12/16/18 07/16/19 23:59 23:59 23:59 23:59 Intake Total 3616 / 3616 5234 / 5234 60 / 60 Output Total 2202 / 2202 2700 / 2700 1999 Balance 1414 / 1414 2534 / 2534 -1940 / -1940 Weight 173 lb 6.4 oz 173 lb 2 oz 175 lb 7 oz 184 lb 1 oz - Constitutional no acute distress - *Routine HEENT Exam Head: Present: normocephalic, atraumatic. 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 ) - *Routine Neck Exam Present: supple, full ROM. Absent: tracheal deviation - *Routine Respiratory Exam Present: CTA bilaterally. Absent: accessory muscle use, respiratory distress - *Routine Cardiovascular Exam Present: RRR. Absent: bradycardia, tachycardia - *Routine Abdominal Exam Present: soft, normoactive bowel sounds. Absent: tenderness - *Routine Extremities Exam Present: pulses intact - Routine Back/Spine/Pelvis Exam Back/Spine: Present: full ROM. Absent: CVA tenderness, pain with lateral flexion - *Routine Skin Exam Present: intact. Absent: cyanosis, erythema - *Routine Neurological Exam Present: alert, CN II-XII intact. Absent: oriented X3 - Routine Psychiatric Exam Present: cooperative. Absent: auditory hallucinations, visual hallucinations Assessment and Plan (1) Altered mental status Current visit: Yes Status: Acute Category: Medical Code(s): R41.82 - Altered mental status, unspecified (2) [place] toxicity Current visit: Yes Status: Acute Category: Medical Code(s): T56.891A - Toxic effect of other metals, accidental (unintentional), initial encounter (3) Medication side effect Current visit: Yes Status: Acute Category: Medical Code(s): T88.7XXA - Unspecified adverse effect of drug or medicament, initial encounter (4) QT prolongation Current visit: Yes Status: Acute Category: Medical Code(s): R94.31 - Abnormal electrocardiogram [ECG] [EKG] (5) Visual loss, left eye Current visit: Yes Status: Acute Category: Medical Code(s): H54.62 - Unqualified visual loss, left eye, normal vision right eye - Assessment and plan all Dx Assessment and Plan for all problems:: Rounded with Dr. Wen, all orders for Dr. Wen [facility] will be by today to evaluate patient for discharge. Probable discharge today or tomorrow <Mauri Wen - Last Filed: 12/17/18 16:13> Internal Medicine - PN: Subj *Date: 12/17/18 *Time: 16:12 Exam Vital signs and Labs for Last 24 Hours: Temp Pulse Resp BP Pulse Ox 98.3 F 70 17 120/50 L 99 12/17/18 15:03 12/17/18 15:03 12/17/18 15:03 12/17/18 15:03 12/17/18 15:03 Laboratory Results - last 24 hr 12/14/18 15:10: [place] 1.9 H* 12/17/18 05:58: WBC 7.6, RBC 3.55 L, Hgb 9.5 L, Hct 31.8 L, MCV 89.5, MCH 26.8 L , MCHC 29.9 L, RDW 14.3, Plt Count 282, MPV 7.7, Neut % (Auto) 71.7, Lymph % (Auto) 18.6, [place] % (Auto) 7.9, Eos % (Auto) 1.5, Baso % (Auto) 0.4, Neut # (Auto) 5.5, Lymph # (Auto) 1.4, [place] # (Auto) 0.6, Eos # (Auto) 0.1, Baso # (Auto) 0.0 12/17/18 05:58: Sodium 144, Potassium 3.3 L, Chloride 109 H, Carbon Dioxide 26, Anion Gap 12.3, BUN 2 L D, Creatinine 0.77, Estimated Creat Clear 73, Estimated GFR 75, Est GFR ( Amer) 91, Glucose 111 H, Calcium 8.3 L, Total Bilirubin 0.1 L, AST 14 L, ALT 19, Alkaline Phosphatase 113, Total Protein 4.9 L, Albumin 2.2 L, Globulin 2.7, Albumin/Globulin Ratio 0.8 L I & O for Last 24 hours: Intake & Output 12/14/18 12/15/18 12/16/18 12/17/18 23:59 23:59 23:59 23:59 Intake Total 3616 / 3616 5234 / 5234 660 / 660 Output Total 2202 / 2202 2700 / 2700 1999 Balance 1414 / 1414 2534 / 2534 -1340 / -1340 Weight 78.653 kg 78.528 kg 79.577 kg 83.489 kg Assessment and Plan (1) Altered mental status Current visit: Yes Status: Acute Category: Medical Code(s): R41.82 - Altered mental status, unspecified (2) [place] toxicity Current visit: Yes Status: Acute Category: Medical Code(s): T56.891A - Toxic effect of other metals, accidental (unintentional), initial encounter (3) Medication side effect Current visit: Yes Status: Acute Category: Medical Code(s): T88.7XXA - Unspecified adverse effect of drug or medicament, initial encounter (4) QT prolongation Current visit: Yes Status: Acute Category: Medical Code(s): R94.31 - Abnormal electrocardiogram [ECG] [EKG] (5) Visual loss, left eye Current visit: Yes Status: Acute Category: Medical Code(s): H54.62 - Unqualified visual loss, left eye, normal vision right eye - Assessment and plan all Dx Assessment and Plan for all problems:: Rounded with nurse practitioner. Agree with exam findings and care plan as documented.
--- NOTE | 2018-12-18 08:38 | Progress Note ---
Internal Medicine - PN: Subj *Date: 12/18/18 *Time: 08:37 Interval history: no complaints.... disoriented but pleasant. Exam Vital signs and Labs for Last 24 Hours: Temp Pulse Resp BP Pulse Ox 97.9 F 59 L 18 137/57 L 97 12/18/18 08:00 12/18/18 08:00 12/18/18 08:00 12/18/18 08:00 12/18/18 08:00 I & O for Last 24 hours: Intake & Output 12/15/18 12/16/18 12/17/18 12/18/18 11:59 11:59 11:59 11:59 Intake Total 1914 / 1914 4449 / 4449 2547 / 2547 2143 / 2143 Output Total 1802 / 1802 2200 / 2200 2900 / 2900 1600 / 1600 Balance 112 / 112 2249 / 2249 -353 / -353 543 / 543 Weight 173 lb 2 oz 175 lb 7 oz 184 lb 1 oz 186 lb 9 oz Narrative: Alert. Oriented to self. Disoriented to time and place. Very pleasant and cooperative. Vital signs unremarkable. Assessment and Plan (1) Altered mental status Current visit: Yes Status: Acute Category: Medical Code(s): R41.82 - Altered mental status, unspecified (2) [place] toxicity Current visit: Yes Status: Acute Category: Medical Code(s): T56.891A - Toxic effect of other metals, accidental (unintentional), initial encounter (3) Medication side effect Current visit: Yes Status: Acute Category: Medical Code(s): T88.7XXA - Unspecified adverse effect of drug or medicament, initial encounter (4) QT prolongation Current visit: Yes Status: Acute Category: Medical Code(s): R94.31 - Abnormal electrocardiogram [ECG] [EKG] (5) Visual loss, left eye Current visit: Yes Status: Acute Category: Medical Code(s): H54.62 - Unqualified visual loss, left eye, normal vision right eye - Assessment and plan all Dx Assessment and Plan for all problems:: No change in plan, await state bureaucracy approval for transfer to appropriate long-term facility.
--- NOTE | 2018-12-19 08:29 | Progress Note ---
Internal Medicine - PN: Subj *Date: 12/19/18 *Time: 08:00 Interval history: Patient laying in bed, pleasantly confused. Repeatedly states "is my ride here yet." Exam Vital signs and Labs for Last 24 Hours: Temp Pulse Resp BP Pulse Ox 98.4 F 65 18 138/61 98 12/19/18 04:00 12/19/18 04:00 12/19/18 04:00 12/19/18 04:00 12/19/18 08:00 I & O for Last 24 hours: Intake & Output 12/16/18 12/17/18 12/18/18 12/19/18 11:59 11:59 11:59 11:59 Intake Total 4449 / 4449 2547 / 2547 2143 / 2143 1680 / 1680 Output Total 2200 / 2200 2900 / 2900 1600 / 1600 1550 / 1550 Balance 2249 / 2249 -353 / -353 543 / 543 130 / 130 Weight 175 lb 7 oz 184 lb 1 oz 186 lb 9 oz 188 lb 6 oz Narrative: Confused at baseline. Rate and rhythm regular. No LE edema. Lung sounds clear and equal. Abdomen soft and nontender Assessment and Plan (1) Altered mental status Current visit: Yes Status: Acute Category: Medical Code(s): R41.82 - Altered mental status, unspecified (2) [place] toxicity Current visit: Yes Status: Acute Category: Medical Code(s): T56.891A - Toxic effect of other metals, accidental (unintentional), initial encounter (3) Medication side effect Current visit: Yes Status: Acute Category: Medical Code(s): T88.7XXA - Unspecified adverse effect of drug or medicament, initial encounter (4) QT prolongation Current visit: Yes Status: Acute Category: Medical Code(s): R94.31 - Abnormal electrocardiogram [ECG] [EKG] (5) Visual loss, left eye Current visit: Yes Status: Acute Category: Medical Code(s): H54.62 - Unqua lified visual loss, left eye, normal vision right eye - Assessment and plan all Dx Assessment and Plan for all problems:: Cleared for discharge from medical standpoint, awaiting bed placement at [facility], likely today or tomorrow.
--- NOTE | 2018-12-20 08:06 | Progress Note ---
Internal Medicine - PN: Subj *Date: 12/20/18 *Time: 09:32 Interval history: Remained hemodynamically stable. Tolerating regular diet. Afebrile. No complaints this morning. Continues to ask when she is getting discharged. Denies shortness of breath, chest pain, nausea or vomiting Exam Vital signs and Labs for Last 24 Hours: Temp Pulse Resp BP Pulse Ox 98.0 F 70 22 108/57 L 99 12/20/18 04:00 12/20/18 04:00 12/20/18 04:00 12/20/18 04:00 12/20/18 04:00 I & O for Last 24 hours: Intake & Output 12/17/18 12/18/18 12/19/18 12/20/18 23:59 23:59 23:59 23:59 Intake Total 2203 / 2203 1200 / 1200 1320 / 1320 Output Total 3000 / 3000 1700 / 1700 1750 / 1750 1300 / 1300 Balance -797 / -797 -500 / -500 -430 / -430 -1300 / -1300 Weight 83.489 kg 84.623 kg 85.445 kg 84.992 kg Narrative: Confused at baseline. Rate and rhythm regular. No LE edema. Lung sounds clear and equal. Abdomen soft and nontender Assessment and Plan (1) Altered mental status Current visit: Yes Status: Acute Category: Medical Code(s): R41.82 - Altered mental status, unspecified (2) [place] toxicity Current visit: Yes Status: Acute Category: Medical Code(s): T56.891A - Toxic effect of other metals, accidental (unintentional), initial encounter (3) Medication side effect Current visit: Yes Status: Acute Category: Medical Code(s): T88.7XXA - Unspecified adverse effect of drug or medicament, initial encounter (4) QT prolongation Current visit: Yes Status: Acute Category: Medical Code(s): R94.31 - Abnormal electrocardiogram [ECG] [EKG] (5) Visual loss, left eye Current visit: Yes Status: Acute Category: Medical Code(s): H54.62 - Unqualified visual loss, left eye, normal vision right eye - Assessment and plan all Dx Assessment and Plan for all problems:: Continuing to await determination by [facility] for placement. Restart Depakote today. Dosing to be twice daily. Will monitor for response. Otherwise patient stable and medically ready for discharge
--- NOTE | 2018-12-21 07:44 | Progress Note ---
Internal Medicine - PN: Subj *Date: 12/21/18 *Time: 07:43 Interval history: Patient had some complaints of upset stomach overnight for which she was ultimately given 1 dose of IV Pepcid, 1 dose of oral Zofran, and some Tylenol. Patient continues to question when she will be able to leave the hospital. Her upset stomach has resolved Exam Vital signs and Labs for Last 24 Hours: Temp Pulse Resp BP Pulse Ox 98.6 F 60 19 137/63 95 12/21/18 03:56 12/21/18 04:00 12/21/18 03:56 12/21/18 03:56 12/21/18 03:56 I & O for Last 24 hours: Intake & Output 12/18/18 12/19/18 12/20/18 12/21/18 11:59 11:59 11:59 11:59 Intake Total 2143 / 2143 2040 / 2040 960 / 960 970 / 970 Output Total 1600 / 1600 2450 / 2450 2100 / 2100 1600 / 1600 Balance 543 / 543 -410 / -410 -1140 / -1140 -630 / -630 Weight 186 lb 9 oz 188 lb 6 oz 187 lb 6 oz 178 lb 6.004 oz Narrative: She appears comfortable. Lungs are clear. Heart has a regular rate and rhythm. Abdomen is soft and nontender with active bowel sounds Assessment and Plan (1) Altered mental status Current visit: Yes Status: Acute Category: Medical Code(s): R41.82 - Altered mental status, unspecified (2) [place] toxicity Current visit: Yes Status: Acute Category: Medical Code(s): T56.891A - Toxic effect of other metals, accidental (unintentional), initial encounter (3) Medication side effect Current visit: Yes Status: Acute Category: Medical Code(s): T88.7XXA - Unspecified adverse effect of drug or medicament, initial encounter (4) QT prolongation Current visit: Yes Status: Acute Category: Medical Code(s): R94.31 - Abnormal electrocardiogram [ECG] [EKG] (5) Visual loss, left eye Current visit: Yes Status: Acute Category: Medical Code(s): H54.62 - Unqualified visual loss, left eye, normal vision right eye - Assessment and plan all Dx Assessment and Plan for all problems:: No real change in plan of care. Going to order some simethicone for any gas pains. DC IV fluids and telemetry monitoring. Have asked nursing staff to make sure the patient is ambulating
--- NOTE | 2018-12-22 07:10 | Progress Note ---
Internal Medicine - PN: Subj *Date: 12/22/18 *Time: 07:09 Interval history: No change in patient's health over the last 24 hours. Nursing staff did limit her consumption of carbonated beverages yesterday evening due to the patient's dyspepsia from the night before. Patient is without complaints. She continues to question when she will be discharged Exam Vital signs and Labs for Last 24 Hours: Temp Pulse Resp BP Pulse Ox 98.8 F 61 16 142/65 H 96 12/22/18 04:29 12/22/18 04:29 12/22/18 04:29 12/22/18 04:29 12/22/18 04:29 I & O for Last 24 hours: Intake & Output 12/19/18 12/20/18 12/21/18 12/22/18 11:59 11:59 11:59 11:59 Intake Total 2040 / 2040 960 / 960 970 / 970 490 / 490 Output Total 2450 / 2450 2100 / 2100 1600 / 1600 Balance -410 / -410 -1140 / -1140 -630 / -630 490 / 490 Weight 188 lb 6 oz 187 lb 6 oz 178 lb 6.004 oz 178 lb 6.004 oz - Constitutional no acute distress - *Routine Respiratory Exam Present: CTA bilaterally - *Routine Cardiovascular Exam Present: RRR - *Routine Abdominal Exam Present: soft Assessment and Plan (1) Altered mental status Current visit: Yes Status: Acute Category: Medical Code(s): R41.82 - Altered mental status, unspecified (2) [place] toxicity Current visit: Yes Status: Acute Category: Medical Code(s): T56.891A - Toxic effect of other metals, accidental (unintentional), initial encounter (3) Medication side effect Current visit: Yes Status: Acute Category: Medical Code(s): T88.7XXA - Unspecified adverse effect of drug or medicament, initial encounter (4) QT prolongation Current visit: Yes Status: Acute Category: Medical Code(s): R94.31 - Abnormal electrocardiogram [ECG] [EKG] (5) Visual loss, left eye Current visit: Yes Status: Acute Category: Medical Code(s): H54.62 - Unqualified visual loss, left eye, normal vision right eye - Assessment and plan all Dx Assessment and Plan for all problems:: No change in plan of care.
--- NOTE | 2018-12-23 08:36 | Progress Note ---
Internal Medicine - PN: Subj *Date: 12/23/18 *Time: 08:35 Interval history: Patient remained the same over the weekend. This morning is sleeping deeply. Exam Vital signs and Labs for Last 24 Hours: Temp Pulse Resp BP Pulse Ox 97.8 F 66 16 137/54 L 97 12/23/18 07:11 12/23/18 07:11 12/23/18 07:11 12/23/18 07:11 12/23/18 07:11 I & O for Last 24 hours: Intake & Output 12/20/18 12/21/18 12/22/18 12/23/18 11:59 11:59 11:59 11:59 Intake Total 960 / 960 970 / 970 550 / 550 720 / 720 Output Total 2100 / 2100 1600 / 1600 400 / 400 100 / 100 Balance -1140 / -1140 -630 / -630 150 / 150 620 / 620 Weight 187 lb 6 oz 178 lb 6.004 oz 178 lb 6.004 oz 178 lb 6.004 oz Narrative: Vital signs unremarkable, patient sleeping comfortably. No changes in observation exam Assessment and Plan (1) Altered mental status Current visit: Yes Status: Acute Category: Medical Code(s): R41.82 - Altered mental status, unspecified (2) [place] toxicity Current visit: Yes Status: Acute Category: Medical Code(s): T56.891A - Toxic effect of other metals, accidental (unintentional), initial encounter (3) Medication side effect Current visit: Yes Status: Acute Category: Medical Code(s): T88.7XXA - Unspecified adverse effect of drug or medicament, initial encounter (4) QT prolongation Current visit: Yes Status: Acute Category: Medical Code(s): R94.31 - Abnormal electrocardiogram [ECG] [EKG] (5) Visual loss, left eye Current visit: Yes Status: Acute Category: Medical Code(s): H54.62 - Unqualified visual loss, left eye, normal vision right eye - Assessment and plan all Dx Assessment and Plan for all problems:: Patient continues to be afflicted with her disordered thinking. Has had no behavior problems or aggressive behaviors. We await clearance from [facility] bureaucracy about appropriate placement.
--- NOTE | 2018-12-24 07:22 | Progress Note ---
Internal Medicine - PN: Subj *Date: 12/24/18 *Time: :19 Interval history: Continues to be stable at baseline. No events overnight. Tolerating diet. Remains afebrile, without cough, congestion, nausea, vomiting or diarrhea. Exam Vital signs and Labs for Last 24 Hours: Temp Pulse Resp BP Pulse Ox 97.7 F 62 18 145/71 H 97 12/24/18 04:16 12/24/18 04:16 12/24/18 04:16 12/24/18 04:16 12/24/18 04:16 I & O for Last 24 hours: Intake & Output 12/21/18 12/22/18 12/23/18 12/24/18 23:59 23:59 23:59 23:59 Intake Total 490 / 490 790 / 790 1200 / 1200 Output Total 500 / 500 1400 / 1400 Balance 490 / 490 290 / 290 -200 / -200 Weight 80.91 kg 80.91 kg 80.91 kg 77.428 kg Narrative: Confused at baseline, though alert and oriented to person Left eye with chronic cataract/corneal sclerosis, rate and rhythm regular. No LE edema Lung sounds clear and equal Abdomen soft and nontender Assessment and Plan (1) Altered mental status Current visit: Yes Status: Acute Category: Medical Code(s): R41.82 - Altered mental status, unspecified (2) [place] toxicity Current visit: Yes Status: Acute Category: Medical Code(s): T56.891A - Toxic effect of other metals, accidental (unintentional), initial encounter (3) Medication side effect Current visit: Yes Status: Acute Category: Medical Code(s): T88.7XXA - Unspecified adverse effect of drug or medicament, initial encounter (4) QT prolongation Current visit: Yes Status: Acute Category: Medical Code(s): R94.31 - Abnormal electrocardiogram [ECG] [EKG] (5) Visual loss, left eye Current visit: Yes Status: Acute Category: Medical Code(s): H54.62 - Unqualified visual loss, left eye, normal vision right eye - Assessment and plan all Dx Assessment and Plan for all problems:: Ms. Winston continues to remain hemodynamically stable. Stable for medical discharge from the hospital. Continues to pend [facility] approval.
--- NOTE | 2018-12-25 08:40 | Discharge Summary ---
General - General Admission date:: 12/14/18 Discharge date: 12/25/18 HPI HPI: 67-year-old with significant psychiatric disease who has been a long-term resident of a local [facility] [place] [facility] and who is on multiple cardiac medications and psychiatric medications including lithium. History from [facility] [place] [facility] notes that 3 days ago they received notification that her lithium level was "toxic." The order was given to reduce lithium dose from 3 times daily to twice daily, but patient has continued to become more somnolent and this morning was noted to be sleeping in her chair, unable to feed or do activities of daily living and was brought to the emergency department. Noted to be somnolent, but arousable, vital signs and labs were unremarkable- lithium level is pending-but was noted to have long QT interval on EKG and was admitted to the hospital for further evaluation and monitoring. Hospital Course Hospital Course: Patient was admitted, lithium levels were held, she was closely monitored and her QT per interval prolongation resolved. She was taken off telemetry, her lithium obviously was held and she was transitioned from risperidone to Abilify which seemed to help her. She improved in regards to her lethargy but still required lots of assistance with transfers, feeding and self-care activities. Her [facility] [place] [facility] felt that she was no longer a candidate to be in this type environment and as a result long-term care bed was found at the [facility] facility here in [facility]. Patient unfortunately had to stay here in the acute care hospital setting while [facility] bureaucracy approved her admission to the facility which was done today. She will be transferred there today for ongoing care under Dr. Martínez service. Objective Vital signs: Temp Pulse Resp BP Pulse Ox 98.1 F 60 18 139/64 99 12/25/18 08:00 12/25/18 08:00 12/25/18 08:00 12/25/18 08:00 12/25/18 08:00 Narrative: Patient is awake, alert, pleasant, consistently tangential with her speech with disorientation and obvious cognitive impairment. No globe changer baseline however. Left sclera thickened and white consistent with her history of visual loss from remote trauma. Oropharynx clear with no lesions. No JVD. Heart rate regular without murmurs. Anterior lung ely are clear. Abdomen soft and nontender. No edema or clubbing, moving all extremity as well. Results Labs on day of discharge: Labs from last 24 hours 12/24/18 22:00 Stl Aeromonas (PCR) Not detected Stl C. cayetanensis PCR Not detected Stool Rotavirus (PCR) Not detected Stl Adenov F 40/41 PCR Not detected Stool Astrovirus (PCR) Not detected Stool Campylobacter PCR Not detected Stl C.difficile Tox PCR Not detected Stool Cryptosporidium PCR Not detected Stl E.coli Shiga Tox PCR Not detected Stool E coli O157 PCR Not detected Stl Enterotoxigenic E PCR Not detected Stool EPEC (PCR) Not detected Stool EAEC (PCR) Not detected Stl E. histolytica PCR Not detected Stool Giardia Lamblia PCR Not detected Stool Salmonella PCR Not detected Stool Sapovirus (PCR) Not detected Stl P. shigelloides PCR Not detected Stl Shigella/EIEC PCR Not detected St Y.enterocolitica PCR Not detected Stool Vibrio (PCR) Not detected Stl Vibrio cholerae PCR Not detected Stl Norovirus GI/GII PCR Not detected DS: Diagnosis - Discharge Diagnosis (1) Altered mental status Status: Chronic (2) [place] toxicity Status: Resolved (3) Medication side effect Status: Resolved (4) QT prolongation Status: Resolved (5) Visual loss, left eye Status: Chronic Discharge Plan - Patient Discharge Instructions ACTIVITY: Continue current activity DIET: continue same diet Patient Instructions: DI for Dehydration -- Adult, [place], DI for Hypothyroidism, DI for Altered Mental Status - Follow up Plan Follow up with: Rony Martínez MD [Primary Care Provider] - Disposition: er [facility] Home Medications: Home Medications Medication Instructions Recorded Confirmed Type Brimonidine Tartrate/Timolol 1 drop OD BID 06/26/17 12/15/18 History [Combigan 0.2%-0.5% Eye Drops] [place] Carbonate [[place] 300 mg PO BID 06/26/17 12/14/18 History Carbonate ER] Multivitamin [One Daily] 1 each PO DAILY 06/26/17 12/14/18 History Sertraline HCl [Zoloft] 200 mg PO DAILY 06/26/17 12/14/18 History risperiDONE [Risperidone] 4 mg PO BID 06/26/17 12/14/18 History divalproex 125 mg capsule,delayed 500 mg PO TID cap 11/01/18 12/14/18 History release sprinkle levothyroxine 100 mcg tablet 100 mcg PO DAILY 11/01/18 12/14/18 History loperamide 2 mg capsule 2 mg PO Q3HP PRN 11/01/18 12/14/18 History meloxicam 7.5 mg tablet 7.5 mg PO DAILY 11/01/18 12/14/18 History polyethylene glycol 3350 17 17 g PO DAILYP PRN 11/01/18 12/14/18 History gram/dose oral powder Acetaminophen [Acetaminophen 325mg 650 mg PO Q4HP PRN 12/14/18 12/14/18 History tab] OXcarbazepine [Trileptal 300mg 300 mg PO BID 12/14/18 12/14/18 History tablet] Ondansetron HCl [Ondansetron 4mg 4 mg PO Q4HP PRN 12/14/18 12/14/18 History Tablet] Benztropine Mesylate [Cogentin 1mg 1 mg PO BID 12/15/18 12/15/18 History tablet] Buspirone HCl [Buspar 10mg 20 mg PO TID 12/15/18 12/15/18 History tablet] Loratadine [Claritin] 10 mg PO DAILY 12/16/18 12/16/18 History Prescriptions/Medication Reconciliation: New ARIPiprazole [Abilify 10mg Tablet] 5 mg PO BID tablet Benztropine Mesylate [Cogentin 1mg tablet] 0.5 mg PO BID tablet Continued loperamide 2 mg capsule 2 mg PO Q3HP PRN PRN Reason: Nausea polyethylene glycol 3350 17 gram/dose oral powder 17 g PO DAILYP PRN PRN Reason: Constipation levothyroxine 100 mcg tablet 100 mcg PO DAILY meloxicam 7.5 mg tablet 7.5 mg PO DAILY Sertraline HCl [Zoloft] 200 mg PO DAILY Multivitamin [One Daily] 1 each PO DAILY Brimonidine Tartrate/Timolol [Combigan 0.2%-0.5% Eye Drops] 1 drop OD BID Acetaminophen [Acetaminophen 325mg tab] 650 mg PO Q4HP PRN PRN Reason: As Needed For Fever Or Pain Ondansetron HCl [Ondansetron 4mg Tablet] 4 mg PO Q4HP PRN PRN Reason: Nausea Buspirone HCl [Buspar 10mg tablet] 20 mg PO TID Benztropine Mesylate [Cogentin 1mg tablet] 1 mg PO BID Loratadine [Claritin] 10 mg PO DAILY Discontinued divalproex 125 mg capsule,delayed release sprinkle 500 mg PO TID cap risperiDONE [Risperidone] 4 mg PO BID OXcarbazepine [Trileptal 300mg tablet] 300 mg PO BID [place] Carbonate [[place] Carbonate ER] 300 mg PO BID
== END 2018-12-25 14:28 | DRG 897 ==
LOC: ER 13:30 → 2ND 13:30 → OBSVTOIN 17:22 → 2ND 17:25
PROVIDERS: ADMIT Internal Medicine Adolescent Medicine; ATTEND Internal Medicine Adolescent Medicine

== ENCOUNTER → 2019-03-12 10:16 | Outpatient (CLI) | payer MEDICARE, MEDICAID, SELFPAY ==
--- NOTE | 2019-03-12 | CA_ITS ---
APPROVED REPORT Exam: Pharmacologic Technologist: Livier Crabtree Ht: 5 ft 2 in Wt: 155 lbs BSA: 1.72 m2 HR: 77 bpm BP: 163/81 mmHg Indications: Shortness of Air, Edema bilat low, Dyspnea Medical History Medications: Amlodipine,,,,, Lorazepam,,,,, Levothyroxine,,,,, Aspirin,,,,, Gabapentin,,,,, Pantoprazole,,,,, Carvedilol,,,,, CloPIdogrel,,,,, PaROXETINE,,,,, Stress Test Details Test: LEXISCAN HR Resting HR: 81 bpm Max Heart Rate (APMHR): 153 bpm Max HR Achieved: 117 bpm Target HR (85% APMHR): 130 bpm % of APMHR: 76 Recovery HR: 96 bpm BP Resting BP: 163.0/81.0 mmHg Max BP: 182.0/78.0 mmHg Recovery BP: 182.0/78.0 mmHg ECG Clinical Exercise duration: 04:00 min Highest Stage Achieved: Stress ECG Conclusion Resting ECG: Normal sinus rhythm, right axis deviation, ST-T abnormalities inferiorly. Symptoms: Shortness of air, malaise. Arrhythmias/Ectopy: None ST-T Changes: Exaggeration of baseline ST-T abnormalities inferior leads. NS T wave changes in lead V6. Conclusion: Unremarkable Lexiscan Stress. Myovie images reported separately. Test Summary REST . . . . . . . Sitting REST 09:20 . . 81 . 163/ 81 . . Stage 1 . . . . . . . Myoview Injected Stage 1 01:00 . . 110 . . . . Stage 2 01:00 . . 117 . 163/ 79 . . Stage 3 01:00 . . 115 . 162/ 72 . . Stage 4 01:00 . . 110 . 161/ 75 . Stop exercise at 04:00 RECOVERY 01:00 . . 107 . . . . RECOVERY 02:00 . . 92 . . . . RECOVERY 03:00 . . 101 . . . . RECOVERY 04:00 . . 99 . 165/ 72 . . RECOVERY 05:00 . . 101 . 164/ 75 . . RECOVERY 06:00 . . 100 . 164/ 75 . . RECOVERY 07:00 . . 95 . 164/ 75 . . RECOVERY 07:39 . . 96 . 182/ 78 . . Electronically signed by : Kingsley Anderson, 03/12/2019 20:49:42
--- NOTE | 2019-03-12 10:19 | NM_ITS ---
APPROVED REPORT Exam: Nuclear Stress Test Indication: soa, edema, dyspnea, htn, fm.hx., syncope, fatique Patient Location: Outpatient Stress Tech: Livier Crabtree SD Tech:Estrellita Contreras ARRT RT (R)(N)(M) Ht: 5 ft 7 in Wt: 198 lbs Bra Size: 42DD HR: 77 bpm BP: 163/81 mmHg BSA: 2.01 m2 BMI: 31.0 History: soa, edema, dyspnea, htn, fm.hx., syncope, fatique Procedure: Patient received a 0.4 mg of intravenous Lexiscan, resting heart rate 77 bpm, resting blood pressure 163/81 mmHg, with Lexiscan maximum heart rate achived was 117 bpm which is Less than 85 % of the maximum predicted heart rate and blood pressure was 163/79 mmHg. soa, malaise Electrocardiogram Resting electrocardiogram showed sinus rhythm nonspecific ST-T changes, with Lexiscan there is less than 1.[address] segment depression noted from the baseline EKG. The EKG portion of the Lexiscan Myoview is nondiagnostic. Cardiac Stress and Resting SPECT Images: Cardiac Stress and Resting SPECT images were obtained using technetium 99m Myoview 30.6 mCi stress and 10.58 mCi at rest. Gated SPECT with analysis of segmental wall motion and calculation of the ejection fraction also done. Cardiac stress and resting SPECT images show uniform myocardial activity without segmental perfusion abnormality, computer derived ejection fraction is over 65% with no regional wall motion abnormality, right ventricle is normal size and contractility. Conclusion: 1. The EKG portion of the Lexiscan Myoview is nondiagnostic. 2. No scintigraphic evidence of reversible ischemia seen, computer derived ejection fraction is over 65% with no regional wall motion abnormality, right ventricle is normal size and contractility. 3. Normal Lexiscan Myoview study. Electronically signed by : Kingsley Anderson, 03/12/2019 20:51:46
--- NOTE | 2019-03-12 10:19 | US_ITS ---
APPROVED REPORT Exam Type: Ankle to Brachial Index Information Services Tech: Maryanne Ryan RDCS Indications Claudication: Bilaterally Rest Pain: Bilaterally History of Smoking skin color changes bilaterally Risk Factors Hypertension History of Smoking Pressures/Indices Right Indices Left Indices Brachial 140.00 mmHg Brachial 155.00 mmHg Low Thigh 182.00 mmHg 1.17 Low Thigh 180.00 mmHg 1.16 Calf 208.00 mmHg 1.34 Calf 211.00 mmHg 1.36 Ankle(PT) 177.00 mmHg 1.14 Ankle(PT) 196.00 mmHg 1.26 Ankle(DP) 206.00 mmHg 1.33 Ankle(DP) 209.00 mmHg 1.35 Digit 163.00 mmHg 1.05 Digit 207.00 mmHg 1.34 Findings RT WOODROW=1.1 LT WOODROW=1.3 RT TBI=1.1 LT TBI=1.3 Diminished pulses right side Normal waveforms bilaterally Conclusion RT WOODROW=1.1 LT WOODROW=1.3 RT TBI=1.1 LT TBI=1.3 Diminished pulses right side Normal waveforms bilaterally Electronically signed by : Jose Hill MD 03/14/2019 16:47:32
--- NOTE | 2019-03-12 10:19 | CA_ITS ---
APPROVED REPORT EXAM: Comprehensive 2D, Doppler, and color-flow Echocardiogram Head Animal Trainer: Maryanne Ryan RDCS Ht: 5 ft 7 in Wt: 196lbs BSA: 2.00 BP: 158/74 mmHg Indications: Abnormal ECG, Dizziness and Vertigo 2D Dimensions LVOT 1.70 cm (M/F) 1.5-2.5 M-Mode Dimensions RVDd 1.00 cm (0.9-2.6) LA Diam 3.10 cm (1.9-4.0) LVDd 4.90 cm (3.5-5.7) Ao Diam 2.90 cm (2.0-3.7) LVDs 3.30 cm (3.5-5.7) AV Cusp 1.10 cm (1.5-2.6) IVSd 1.00 cm (0.6-1.1) PWd 1.00 cm (0.6-1.1) EF (Teich) 61.00% FS 32.70% EDV (Teich) 113.00 mL ESV (Teich) 44.10 mL LV Diastology E/A Ratio 0.6 MED E' 7.70 (< 7 cm/sec) E'/MED E' Ratio 8.40 (>14) LAT E' 6.53 (<10 cm/sec) E/LAT E' Ratio 9.90 (>14) Mitral Valve MV E Max Freddy. 64.70 (40-130 cm/s) MV A Velocity 104.00 (40-130 cm/s) E/A Ratio 0.60 Left Ventricle Left atrium is mildly enlarged, left ventricle is normal size, mild concentric left ventricular hypertrophy, visually estimated ejection fraction 55% with no regional wall motion abnormality. Grade 1 diastolic dysfunction seen without tissue Doppler evidence of raise left atrial pressure. Right Ventricle Right atrium and right ventricular normal size and contractility. Aortic Valve Aortic valve is minimally thickened and fibrosed, there is no aortic stenosis aortic insufficiency. Mitral Valve Mitral valve leaflets are minimally thickened, there is mild mitral regurgitation. Tricuspid Valve Tricuspid valve is grossly normal, there is mild tricuspid regurgitation. Pulmonic Valve Pulmonic valve is poorly visualized. Great Vessels Aortic root is normal size. Pericardium No significant pericardial effusion noted. Conclusion 1. Mildly enlarged left atrium, normal left ventricular size, mild concentric left ventricular hypertrophy, visually estimated ejection fraction 55% with no regional wall motion abnormality. Grade 1 diastolic dysfunction seen without tissue Doppler evidence of raise left atrial pressure. 2. Mild mitral and tricuspid regurgitation 3. No significant pericardial effusion noted. Electronically signed by : Kingsley Anderson, 03/13/2019 13:15:45
[2019-03-12 10:42] LABS: Basophils # 0.1 K/mm3 (0-0.2); Basophils % 0.6 % (0.1-2.0); Eosinophils # 0.1 K/mm3 (0.0-0.4); Eosinophils % 1.2 % (0.1-12.0); Hematocrit 40.2 % (37.0-47.0); Hemoglobin 12.1 g/dL (12.2-16.2); Lymphocytes % 25.5 % (10-50); Mean Corpuscular HGB Conc 30.1 g/dL (31.8-35.4); Mean Corpuscular Volume 89.5 fl (81-99); Mean Platelet Volume 7.8 fl (7.4-10.4); Monocytes # 0.5 K/mm3 (0.1-1.0); Monocytes % 6.1 % (1.7-9.3); Neutrophils # 5.1 K/mm3 (1.8-7.8); Neutrophils % 66.6 % (37.0-80.0); Platelet Count 324 K/mm3 (142-424); Red Blood Count 4.49 M/mm3 (4.20-5.40); Red Cell Distribution Width 15.4 % (11.5-17.5); White Blood Count 7.7 K/mm3 (4.8-10.8)
[2019-03-12 14:18] LABS: Alanine Aminotransferase 24 U/L (12-78); Albumin Level 3.8 gm/dL (3.4-5.0); Alkaline Phosphatase 106 U/L (46-116); Anion Gap 12.2 mEq/L (5-15); Aspartate Amino Transferase 18 U/L (15-37); Bilirubin,Direct 0.1 mg/dL (0.0-0.2); Bilirubin,Indirect 0.1 mg/dL (0.0-0.9); Bilirubin,Total 0.2 mg/dL (0.2-1.0); Blood Urea Nitrogen 9 mg/dL (7-18); Calcium 9.2 mg/dL (8.5-10.1); Carbon Dioxide 31 mmol/L (21.0-32.0); Chloride 103 mmol/L (98-107); Chol/HDL Ratio 6.2 (1-3.5); Cholesterol 316 mg/dL (140-200); Creatinine,Serum 0.73 mg/dL (0.55-1.02); Estimated Glomerular Filt Rate 80 ml/min (>60); Free T4 (Free Thyroxine) 0.72 ng/dl (0.76-1.46); GFR (African American) 96 ML/MIN (>60); Glucose 89 mg/dL (74-106); HDL Cholesterol 51 mg/dL (29-89); LDL Cholesterol 205 mg/dL (0-130); Potassium 5.2 mmoL/L (3.5-5.1); Sodium 141 mmol/L (136-145); Thyroid Stimulating Hormone 16.03 uIU/ml (0.358-3.740); Total Protein,Serum 7.6 gm/dL (6.4-8.2); Triglycerides 302 mg/dL (30-200); VLDL Cholesterol 60 mg/dL (0-40)
== END ==
PROVIDERS: PCP Emergency Medicine; Visit Provider Nurse Practitioner Family
DX: M79.601 Pain in right arm (principal); M79.602 Pain in left arm; M79.604 Pain in right leg; M79.605 Pain in left leg; R06.00 Dyspnea, unspecified; R42 Dizziness and giddiness; R60.9 Edema, unspecified; R41.82 Altered mental status, unspecified; W19.XXXA Unspecified fall, initial encounter; E03.9 Hypothyroidism, unspecified; R94.31 Abnormal electrocardiogram [ECG] [EKG]; I73.9 Peripheral vascular disease, unspecified
CPT/HCPCS: 36415; 78452; 80048; 80061; 80076; 84439; 84443; 85025; 93017; 93306; 93923; A9502; J2785

== ENCOUNTER → 2019-04-29 08:41 | Outpatient (CLI) | payer MEDICARE, MEDICAID, SELFPAY ==
--- NOTE | 2019-04-29 09:30 | MM_ITS ---
PROCEDURE: MM DIG SCREENING MAMM BI W/CAD Patient Age:68Y CLINICAL INDICATION: Routine Screening Mammogram Patient mentally challenged; agitated difficult to image and position the. Best images possible. No hormones. No complaints.Patient is poor historian could not answer questions on history. Previous percutaneous biopsy left breast COMPARISON: [facility] MM Dig screening mamm BI w/CAD from 10/10/2017 DXRT MM Dig mamm DX unilat RT CAD from 10/31/2017 DXRT MM Dig mamm DX unilat RT CAD from 05/01/2018 TECHNIQUE: Standard CC and MLO images were obtained. R2 CAD reviewed. FINDINGS: Minimal fibroglandular elements bilaterally but overall lower density breast with of mild diffuse fatty replacement. Left breast: No new area of concern Metallic marker from previous percutaneous biopsy deep inferior left breast 6 o'clock position Right breast: No new areas significant concern We again see stable area of linear fairly benign-appearing calcification at the superior right breast 12 o'clock position. Ongoing follow-up recommended with bilateral mammogram at, or not over 1 year recommended IMPRESSION: . Stable bilateral mammogram. No new areas of significant concern. Stable calcifications right breast noted-but these do warrant ongoing annual follow-up. BI-RAD Category: 2 Benign Finding(s) FOLLOW-UP: 1YR 1 Year Follow-up (A letter has been sent to the patient regarding results of the study.) Dictated by: Karl Soto MD 04/30/2019 09:57 Electronically signed by Karl Soto MD in [place] 04/30/2019 09:57
== END ==
PROVIDERS: PCP Emergency Medicine; Visit Provider Nurse Practitioner Obstetrics & Gynecology
DX: Z12.31 Encounter for screening mammogram for malignant neoplasm of breast (principal)
CPT/HCPCS: 77067

== ENCOUNTER → 2019-06-20 14:26 | Outpatient (CLI) | payer MEDICARE, MEDICAID, SELFPAY ==
[2019-06-20 15:14] LABS: Occult Blood,Stool Negative (Negative)
== END ==
PROVIDERS: Visit Provider Emergency Medicine
DX: Z79.899 Other long term (current) drug therapy (principal)
CPT/HCPCS: 82272; G0328

== ENCOUNTER → 2019-07-08 18:48 | Outpatient (CLI) | payer MEDICARE, MEDICAID, SELFPAY | PROVIDERS: PCP Emergency Medicine; Visit Provider Emergency Medicine | DX: J11.1 Influenza due to unidentified influenza virus with other respiratory manifestations (principal) | CPT/HCPCS: 87275; 87276 ==

== ENCOUNTER → 2019-11-03 09:55 | Outpatient (CLI) | payer MEDICARE, MEDICAID, SELFPAY | PROVIDERS: PCP Emergency Medicine; Visit Provider Emergency Medicine | DX: Z12.31 Encounter for screening mammogram for malignant neoplasm of breast (principal) ==

== ENCOUNTER → 2020-06-18 20:52 | Outpatient (CLI) | payer MEDICARE, MEDICAID, SELFPAY | PROVIDERS: PCP Emergency Medicine; Visit Provider Nurse Practitioner Family | DX: U07.1 COVID-19 (principal) | CPT/HCPCS: U0003 ==

== ENCOUNTER → 2021-02-08 10:53 | Outpatient (CLI) | payer MEDICARE, MEDICAID, SELFPAY ==
--- NOTE | 2021-02-08 10:53 | MM_ITS ---
PROCEDURE: MM DIG SCREENING MAMM BI W/CAD Digital Breast Tomosynthesis Included CLINICAL INDICATION: screening mammogram COMPARISON: MG DXRT MM Dig mamm DX unilat RT CAD from 10/31/2017 MG DXRT MM Dig mamm DX unilat RT CAD from 05/01/2018 MG MM DIG SCREENING MAMM BI W/CAD from 04/29/2019 TECHNIQUE: Standard CC and MLO images and 3D Tomosynthesis was obtained. R2 CAD reviewed. FINDINGS: There are scattered areas of fibroglandular density. There are benign-appearing calcifications. No suspicious appearing mass, malignant-appearing microcalcification, architectural distortion, or skin thickening.. Biopsy clip is present in the 6 o'clock region of the left breast posterior 1/3. No significant change IMPRESSION: Benign findings. No evidence of malignancy BI-RAD Category: 2 Benign Finding FOLLOW-UP: 1 YR 1 Year Follow-up (A letter has been sent to the patient regarding results of the study.) Dictated by: Jose Hill MD 02/18/2021 10:51 Jose Hill MD in [place] 02/18/2021 10:51
== END ==
PROVIDERS: PCP Emergency Medicine; Visit Provider Obstetrics & Gynecology
DX: Z12.31 Encounter for screening mammogram for malignant neoplasm of breast (principal)
CPT/HCPCS: 77063; 77067

== ENCOUNTER → 2022-03-20 08:56 | Outpatient (CLI) | payer MEDICARE, MEDICAID, SELFPAY | PROVIDERS: PCP Emergency Medicine; Visit Provider Nurse Practitioner Family | DX: E78.2 Mixed hyperlipidemia (principal); I10 Essential (primary) hypertension; R06.09 Other forms of dyspnea; R60.9 Edema, unspecified | CPT/HCPCS: 93306 ==

== ENCOUNTER → 2022-06-03 17:39 | Outpatient (CLI) | payer MEDICARE, MEDICAID, SELFPAY | PROVIDERS: PCP Emergency Medicine; Visit Provider Emergency Medicine | DX: U07.1 COVID-19 (principal) | CPT/HCPCS: C9803; U0003; U0005 ==

== ENCOUNTER 2023-08-14 10:43 | Outpatient (CLI) | payer MEDICARE, MEDICAID, SELFPAY ==
--- NOTE | 2023-08-14 10:43 | FL_ITS ---
FINAL REPORT CLINICAL HISTORY: 3.15 min DAP 152.84 FINDINGS: MODIFIED BARIUM SWALLOW History: Dysphagia FINDINGS: Fluoroscopy was provided for the speech pathologist to evaluate the swallowing mechanism. The patient was given several different consistencies of barium while the swallow was visualized fluoroscopically. The report of the speech pathologist should be consulted prior to making dietary decisions. Fluoroscopy time: 3.15 minutes Fluoro dose: 152.84 DAP in uGym2 IMPRESSION: Modified barium swallow under fluoroscopic guidance. Please see the report of the speech pathologist for Dietary recommendations. Reviewed, Interpreted and Dictated by Jamin Luna III, MD Transcribed by DEJA Ramos Authenticated and [facility]
--- NOTE | 2023-08-14 13:42 | HMH.SLMBS2 ---
Speech & Language Evaluation Speech/Language Mod Barium Swallow Start: 08/14/23 13:19 Freq: once Status: Complete Protocol: Document 08/14/23 13:19 AGUILA (Rec: 08/14/23 13:42 [facility] [id number]) General Information General Current Food Consistancy Regular,Thin Liquids Dentition Edentulous Oxygen Status Room Air Patient Orientation Person,Place,Situation Ability to Follow Directions Good Communication Ability No Impairment MBS Recommendations Diet Dietary Recommendations Mechanical Soft,Ground Meats, Thin Liquids Treatment/Strategies Treatment Recommendation Compens. Strategy Educat. Strategy/Precaution Recommend Sitting Upright (90 deg), Double Swallow,No Straw,Small Bites and Sips,Alternate Liquids/Solids Mod Barium Swallow Impressions Summary and Impressions Oral Phase Impression Moderate Impairment Oral Phase Summary Moderate impairment of the oral preparatory and oral transit phase of the swallow. Ms. Winston exhibited difficulty with manipulation and mastication of the solid bolus trials. Only mechanical soft chopped/ground were presented 2' edentulous nature . When presented with mechanical soft nutrigrain bar , she was independently required to bite; scattered loss was noted across the oral cavity with resiudals noted bilaterally and under the tongue. Throughout mastication of the chopped bolus, premature spillage was observed. She was also found to have a difficult time maintaining suction of straw and anterior loss of thin liquids was exhibited. 2' difficulty manipulating bolus, no pill trials were attempted . It is recommended that they be crushed as allowed and ensure that there are limited distractions, pt is sitting upright during and after meals , and limit communication during meals. Pharyngeal Phase Impression Moderate Impairment Pharyngeal Phase Summary Moderate impairment of the pharyngeal phase of the swallow was noted. When presented with a straw sip of liquids, a delayed, untimely swallow was noted with trace penetration seen that was cleared with a cued/prompted throat clear. When Ms. Winston was masticating initial MS bolus trial, A/P spills and premature spillage was noted as residuals pooled in her vallecular space later causing dat penetration of solids. She was also noted to attempt to communicate with mouth still full of adminstered bolus. Across solid trials residual was observed on BOT that required a double hard swallow to clear. Pt was also noted to have trace residual following solid trials at the pyriform sinus. These were cleared with both a liquid and puree wash. Speech/Language MBS Assessment/Goals/Plan Assessment Date of Evaluation: 08/14/23 Evaluation Type Initial Certification Assessment/Problems r/o aspiration per MD order. Does Patient Qualify for Service Yes Qualify/Failure Comment Pt would benefit from follow up with her speech language pathologist based in her NH for diet texture analysis and tolerance following transition in diet. Recommendations PHYSICIAN CERTIFICATION: The specified therapy services are required, authorized, and reviewed every 30 days. Diet Recommendations Mechanical Soft Liquid Type Recommendations Normal/Thin SL Swallow Guidelines Alt bite w/sip thru meal, Standard Aspiration Prec., Crush meds as allowed*,Eat at slow rate Dysphagia Swallow Precautions/Strategies Sitting Upright (90 deg), Double Swallow,No Straw,Small Bites and Sips,Alternate Liquids/Solids Plan Pt/Guardian verbally ack understanding Yes of dx/prognosis/goals G -code Required No Education Instructions provided Discussed observations made throughout instrumental assessment, aspiration precautions, and diet recommendations with pt, as well as provided HEP for pt to bring back to NH for LOCK ASSEMBLER to review. Pt/Caregiver able to recall information Able to recall/restate Reinforcement needed No Mod Barium Swallow Setup Exam Setup Radiologist Jamin Luna Level of Consciousness Awake,Alert,Appropriate, Follows Commands Mod Barium Swallow-Lat View Textures Lateral View Food Presentation Thin Liquid via Cup,Thin Liquid via Straw,Pureed Food- Thin,Mech. Soft Food- Chopped, Mech. Soft Food- Regular, Pudding Comment puree: applesauce MS: nutrigrain bar/crushed bar mixed in barium pudding ( ground) regular solids not trialed 2' edentulous state and difficulty masticating/ manipulating MS solids Oral Phase Labial Closure Minimal Impairment Bolus Formation Pooling L/R Mild Impairment Bolus Formation under Tongue Moderate Impairment Bolus Formation Scattered Loss Moderate Impairment Mastication Rotary Chew Moderate Impairment Mastication Munching Moderate Impairment Mastication Lateralization Mild Impairment Lingual Movement Mild Impairment Residue Clearing Moderate Impairment Pharyngeal Phase A/P Lingual Propulsion Spills Moderate Impairment Swallow Response Delay Mild Impairment Base of Tongue Moderate Impairment Epiglottic Coverage Mild Impairment Laryngeal Elevation Mild Impairment Vallecular Retention Clearing Moderate Impairment Pharyn. Wall Residue Clearing Mild Impairment Piriform Sinus Retention Moderate Impairment Aspiration? No Silent aspiration? No Mod Barium Swallow-AP View Performed Mod Barium Swallow A/P View Test Not Applicable/Performed PHYSICIAN CERTIFICATION: I certify the specified therapy services for Joyce Tish are required, authorized, and reviewed every 30 days.
== END 2023-08-14 23:59 ==
LOC: RAD 10:43
PROVIDERS: PCP Internal Medicine; Visit Provider Internal Medicine
DX: R13.10 Dysphagia, unspecified (principal)
CPT/HCPCS: 70371; 92611

== ENCOUNTER 2024-02-21 07:39 | Day surgery (SDC) | payer MEDICARE, MEDICAID, SELFPAY ==
[2024-02-19 16:35] VITALS: BMI 32.2
[2024-02-21 07:51] VITALS: BP 131/72; PULSE 75; RESP 18; TEMP 36.6; O2SAT 99
[2024-02-21] MEDS: LACTATED RINGERS 1000ML 1,000 ML 25 ML IV (08:00)
--- NOTE | 2024-02-21 08:02 | EXP.ANES.CKL ---
[facility] Disclaimer: The information contained in this section may have been updated after the patient was seen, as this information can be updated by other users. Medical History Dermatitis of left ear canal Suicidal ideations Unspecified osteoarthritis, unspecified site Dysphagia, oral phase Edema Bilateral leg pain Abnormal EKG Dizziness Neck pain Bilateral arm pain Dyspnea Hypothyroidism Fall Social History Smoking Status: Former smoker alcohol intake: never substance use type: denies use current occupational status: disabled Travel in the last 8 weeks: None housing: senior living [facility] Anesthesia Checklist Patient Identification Patient Identification: Arm Band and Verbal (Name & ) Structural Data Admitted From: Long-term Nursing Facility Planned Operative Procedure/s: Colonoscopy Consent for Planned Operative Procedure(s) Verified: Yes Verified Documents: Surgical Consent and History and Physical NPO Status Verified Time NPO: 00:00 Additional verifications Anesthesia Reactions: No Airway Assessment Mallampati Score:: Class III C-Spine Mobility Assessed: Yes TMJ Mobility Assessed: Yes Dentition: Edentulous Neurological Assessment Level of Consciousness: Awake Hx Seizures: No Numbness or tingling in extremities: No Anesthesia Plan Anesthesia Risk discussed: Yes Anesthesia Plan: Verified ASA Class: III Anesthesia Type: MAC
[2024-02-21 08:06] LABS: POC Glucose,Bedside 163 (70-110)
[2024-02-21 08:36] VITALS: O2SAT 99
--- NOTE | 2024-02-21 08:37 | P.PCN_ITS ---
[facility] Procedure Note Date: 02/21/24 Time: 08:40 Procedure Note:: Colonoscopy Procedure Report: Colonoscopy [] Endoscopist: Tanvir Gee II, MD Referring physician: Dinh Hyde MD Date of Procedure: 02/21/2024 Equipment: Olympus 190 variable stiffness pediatric colonoscope Sedation: MAC sedation The patient does have cognitive impairment Indication: Mrs. Winston is a 73-year-old female who is here from [facility] for colonoscopy secondary to positive Cologuard test (August 2023). She also has had some dysphagia. The patient does have cognitive impairment. The patient reports no abdominal pain, weight loss, change in bowel habits or rectal bleeding. She did have a colonoscopy in November 2019. Procedure: Prior to the procedure, a history and physical exam was performed, and patient's medications and allergies were reviewed. The risks, benefits and alternatives of the sedation and procedure were discussed with the patient. All questions were answered and informed consent was obtained. The patient was brought to the procedure room. Patient identification and proposed procedure were verified by the physician and the nurse. The patient was placed in a left lateral decubitus position and the scope was passed under direct vision. Throughout the procedure, the patient's blood pressure, pulse, and oxygen saturations were monitored continuously. The colonoscopy was accomplished without difficulty. The patient tolerated the procedure well. Findings: The colonoscope was introduced through the anal canal into the rectum and advanced to the transverse colon. There was brown liquid stool and residue throughout making visibility poor and the patient was clearly very unprepped. I did attempt to suction all liquid but visibility was still poor. An attempt was made because of her age and comorbidities. The remainder of the transverse descending, sigmoid and rectum are grossly normal. There were a few diverticuli. Impression: 1. Very poorly prepped colonoscopy 2. Attempt was made to visualize from the hepatic flexure to the rectum and there were no mass lesions or large polyps Plan: Given the patient's mental status and difficulty in preparation, age and comorbidities, I am not convinced that she should undergo repeat colonoscopy sedation and procedure. There were no mass lesions identified. If concern for need for screening remains, would consider imaging?CT Colography rather than repeat sedation/colonoscopy which carries more risk.
[2024-02-21 08:53] VITALS: BP 118/68; PULSE 84; RESP 16; TEMP 36.4; O2SAT 91
[2024-02-21 09:03] VITALS: BP 118/74; PULSE 86; RESP 16; O2SAT 96
[2024-02-21 09:13] VITALS: BP 137/83; PULSE 86; RESP 18; O2SAT 97
[2024-02-21 09:23] VITALS: BP 120/76; PULSE 87; RESP 18; O2SAT 98
--- NOTE | 2024-02-21 09:46 | SUR.PHASEII ---
called report to [facility].
== END 2024-02-21 09:45 | disposition home or self-care (01) ==
PROVIDERS: PCP Family Medicine; Visit Provider Internal Medicine Gastroenterology
DX: R19.5 Other fecal abnormalities (principal)
CPT/HCPCS: G0121; 82962; J7120